=== PATIENT | male | born 1960 | race Caucasian/White ===

== ENCOUNTER → 2020-08-21 10:22 | Outpatient (BNVA) | payer BC, OTHER, SELFPAY | PROVIDERS: PCP Internal Medicine; Referring Provider Internal Medicine; Visit Provider Orthopaedic Surgery | DX: Z76.89 Persons encountering health services in other specified circumstances (principal) ==

== ENCOUNTER 2020-09-04 13:21 | Outpatient (REF) | payer BC, SELFPAY ==
--- NOTE | 2020-09-04 13:39 | MR_ITS ---
EXAMINATION: MR SHOULDER WITH CONTRAST, LEFT CLINICAL INFORMATION: Impingement syndrome left shoulder. COMPARISON: None TECHNIQUE: MRI of the shoulder was performed following the intra-articular administration of a dilute gadolinium-containing solution (arthrogram) on a high-field scanner. FINDINGS: Study assigned to sd for dictation on 09/09/2020. ROTATOR CUFF: Mild supraspinatus tendinosis. Question subtle thin interstitial tearing in the insertional anterior fibers, extending over a distance approximately 0.5 cm AP. No focal defect or tendon retraction otherwise seen. Infraspinatus, teres minor is intact. Subscapularis tendon is intact, with T2 signal changes within the tendon, could be related to the procedure versus mild tendinosis. No focal tear. No muscle atrophy or fatty infiltration. BICEPS: Intact CORACOACROMIAL ARCH: The undersurface of the acromion is flat with mild lateral downsloping and subacromial spur. Moderate AC joint arthritis. Trace edema/fluid in the subacromial subdeltoid space. LABRUM/CAPSULE: There is a increased T2 signal in the posteroinferior and the inferior labrum (approximately 9-5 o'clock). Findings are suspicious for a labral tear. There is a paralabral cyst measuring 1.5 x 0.4 x 0.4 cm extending inferior to the junction of the posterior/inferior labrum. T2 signal at the superior labral/cartilage interface, the appearance suggesting a sublabral sulcus rather than a tear. Inferior capsule is intact. GLENOHUMERAL JOINT/MARROW: Mild subcortical edema in the greater tuberosity. No fracture. MR/MR shoulder LT w con IMPRESSION: 1. Mild supraspinatus tendinosis. Question subtle interstitial tearing in the insertional anterior fibers measuring 0.5 cm AP. 2. Findings suspicious for a tear of the posteroinferior and inferior labrum. Subjacent 1.5 x 0.4 x 0.4 cm paralabral cyst. 3. Mild subcortical edema in the greater tuberosity. 4. Moderate AC joint arthritis. Possible mild subacromial subdeltoid bursitis. 5. Additional findings and details as above.
--- NOTE | 2020-09-04 13:41 | FL_ITS ---
EXAMINATION: XR ARTHROGRAM SHOULDER, LEFT CLINICAL INFORMATION: Impingement syndrome. Shoulder pain. Preop MRI. COMPARISON: Left shoulder x-ray April 2020 TECHNIQUE: Procedure and risks and benefits including bleeding and infection were discussed with the patient and informed consent was obtained. The left shoulder was prepped and draped in the usual sterile fashion. The skin and soft tissues were anesthetized with 1% lidocaine plain. Using fluoroscopic guidance and a 22-gauge spinal needle, access to the left shoulder joint was obtained. 1 to 2 mL of Omnipaque 300 contrast was injected fluoroscopically confirming adequate placement in the joint space. Subsequently, a mixture of dilute gadolinium and saline was injected into the joint space pre-MRI. FINDINGS: Single fluoroscopic image demonstrates needle placement in the joint space. FLUOROSCOPY TIME: 0.1 minute DOSE AREA PRODUCT: 0.5 vazquez per centimeter squared. 1 saved fluoroscopic image. FL/FL arthrogram shoulder LT IMPRESSION: Pre-MRI left shoulder arthrogram.
[2020-09-04] MEDS: iohexoL 300 MG/ML 50 ML INFUS..BTL IV (14:54)
== END 2020-09-04 13:22 | disposition home or self-care (01) ==
LOC: HO.XRAY 13:21
PROVIDERS: PCP Internal Medicine; Visit Provider Orthopaedic Surgery
DX: M75.42 Impingement syndrome of left shoulder (principal)
CPT/HCPCS: 23350; 73040; 73222; A9585; Q9967

== ENCOUNTER → 2020-09-10 10:01 | Outpatient (BNVA) | payer BC, OTHER, SELFPAY | PROVIDERS: PCP Internal Medicine; Referring Provider Internal Medicine; Visit Provider Orthopaedic Surgery | DX: Z76.89 Persons encountering health services in other specified circumstances (principal) ==

== ENCOUNTER 2020-09-26 09:07 | Day surgery (SDC) | payer BC, OTHER, SELFPAY ==
[2020-09-19 15:35] VITALS: BMI 28.0
--- NOTE | 2020-09-25 08:48 | P.CONAN_ITS ---
Documented by User: Angelia Ricks 09/25/20 08:52 HPI - Anesthesia Eval Consult details Narrative: Shoulder Arthroscopy with ASD [facility] Past Medical History Medical History Cervical radiculopathy Family History Family History Mother No problems noted. Father No problems noted. Surgical History Surgical History H/O colonoscopy Hx of arthroscopic knee surgery Hx of nasal septoplasty Social History Social History Smoking Status: Never smoker Use of substances other than those prescribed or required for medical reasons: No Advance Directives: No Advance Directives Information Provided: No Recently lost weight without trying: No Current occupational status: employed Current occupation: Right [employer] Meds Allergies Allergy/AdvReac Type Severity Reaction Status Date / Time No Known Allergies Allergy Verified 09/10/20 10:11 Home Medications Medication Instructions Recorded Confirmed Type No Known Home Meds 09/10/20 09/19/20 History Exam Exam Date and Time: September 25, 2020 0848 Height,Weight and Vital Signs: Height 5 ft 9 in Weight 86.183 kg Assessment and Plan Assessment Anesthesia Assessment: Chart Reviewed Documented by User: Casey Schroeder MD 09/26/20 10:04 [facility] Past Medical History Medical History Cervical radiculopathy Family History Family History Mother No problems noted. Father No problems noted. Surgical History Surgical History H/O colonoscopy Hx of arthroscopic knee surgery Hx of nasal septoplasty Social History Social History Smoking Status: Never smoker Use of substances other than those prescribed or required for medical reasons: No Advance Directives: No Advance Directives Information Provided: No Recently lost weight without trying: No Current occupational status: employed Current occupation: Right [employer]ed Meds Allergies Allergy/AdvReac Type Severity Reaction Status Date / Time No Known Allergies Allergy Verified 09/10/20 10:11 Home Medications Medication Instructions Recorded Confirmed Type No Known Home Meds 09/10/20 09/19/20 History Exam Airway Mallampati Class: II TM Dist: >3cm Neck ROM: Full Loose/Missing/Broken Teeth: No Heart: rrr Lungs: nl Other: ao Assessment and Plan Assessment Anesthesia Assessment: Anesthesia Plan Discussed and Chart Reviewed Final Anesthetic Review NPO: Yes ASA Class: II Final Preanesthetic Review: No Changes in Pt Med Stat, Meds/Allgs Chart Reviewed, Consent Obtained/Reviewed and Anes Risks/Benef Reviewed Patient Risk: Low Procedure Risk: Low Anesthetic Plan Anesthetic Plan: GA and Regional Block Disposition: Standard PACU
--- NOTE | 2020-09-26 09:04 | MHC.SHP ---
Pre-Procedural Eval Section A The patient is an INPATIENT: No Changes since office visit: No Cold of Flu in the past 2 weeks, No New Medical Problems, No Changes in Medication and No Patient answered all questions The History & Physical has been completed within 30 days and I have reviewed it.: Yes Section B Chief Complaint: Impingement Syndrome Left Shoulder Allergies: Allergies Allergy/AdvReac Type Severity Reaction Status Date / Time No Known Allergies Allergy Verified 09/10/20 10:11 Plan I have reviewed the history and physical and performed a pertinent physical examination on my patient. No changes have occurred unless specified.
[2020-09-26 09:20] VITALS: BP 159/109; PULSE 81; RESP 16; TEMP 36.2; O2SAT 97
[2020-09-26] MEDS: Lactated Ringers 1,000 ML 100 ML IVCONT (09:30)
--- NOTE | 2020-09-26 09:57 | PC.NURSE ---
patient day nerve block well. awaiting for procedure.
--- NOTE | 2020-09-26 12:05 | PM.PRCOR ---
Brief Operative Note Date of procedure: 09/26/20 Pre-op diagnosis: rotator cuff impingement left shoulder Post-op diagnosis: same (with superior labral tear) Procedure: LEFT SHOULDER WITH ASD Anesthesia: GETA and regional Surgeon: Digna Yu Estimated blood loss (mL): 2 Condition: stable Disposition: PACU
[2020-09-26 12:16] VITALS: BP 145/96; PULSE 80; RESP 16; TEMP 36.8; O2SAT 99
[2020-09-26 12:21] VITALS: BP 148/88; PULSE 75; RESP 16; O2SAT 97
[2020-09-26 12:26] VITALS: BP 149/91; PULSE 77; RESP 16; O2SAT 97
[2020-09-26 12:31] VITALS: PULSE 80; RESP 16; O2SAT 97
[2020-09-26 12:46] VITALS: BP 157/96; PULSE 76; RESP 20; TEMP 36.8; O2SAT 97
--- NOTE | 2020-09-29 11:21 | OP_ITS ---
SURGEON: Digna Yu MD PREOPERATIVE DIAGNOSIS: Rotator cuff impingement, left shoulder. POSTOPERATIVE DIAGNOSIS: PROCEDURE PERFORMED: Left shoulder glenohumeral arthroscopy with debridement with subacromial decompression, left shoulder. ESTIMATED BLOOD LOSS: COMPLICATIONS: ANESTHESIA: ASSISTANTS: SPECIMENS: POSTOPERATIVE DIAGNOSES: 1. Superior labral fraying, left shoulder. 2. Rotator cuff impingement, left shoulder. CLINICAL NOTE: This gentleman has an ongoing problem with pain and discomfort involving his left shoulder. He failed operative management. Subsequent investigations confirmed he had rotator cuff impingement without evidence of a tear. Therefore after explaining the risks, benefits, and alternatives and answering all his questions, it was mutually agreed upon to carry out the following procedure. DESCRIPTION OF PROCEDURE: Under a regional interscalene block and general anesthetic, the patient was placed in the right lateral decubitus position. The left shoulder had an EUA demonstrated full range of motion. No evidence of any instability. The left shoulder was then prepped and draped in standard fashion and placed in abduction of 35 degrees and 10 degrees of forward flexion with approximately pounds of traction. Surgical time-out was then performed. The patient was identified, procedure confirmed, site confirmed. Medical analogy and history were reviewed. Preoperative antibiotics were not given. Standard DVT prophylaxis. All other items were discussed and agreed upon. Standard posterior portal was established without any trauma. Anterior portal was established from inside-out technique. The joint was inspected. There was intact long head of the biceps out of the shoulder. The rotator cuff fully attached to the greater tuberosity as well as the portion on the lesser tuberosity normal inferior recess. There was a small area in the middle of the glenoid of grade 2 to 3 injury, but the rest of it was intact. There was fraying of the superior portion of the labrum. Using a full-radius resector, the labrum was debrided. At this point, the intra-articular portion was terminated and we turned our attention to the subacromial space. The scope and instruments were all withdrawn from the glenohumeral joint. The scope was re-introduced in the subacromial space from the posterior portal. Standard lateral portal was established. Using combination of the Ultra-Cut and ArthroCare, the soft tissue and bursa were removed from the subacromial space. The periosteum was removed from the undersurface of the acromion and the AC joint was identified. There was a type 3 acromion, especially anterolaterally. Using combination of the Ultra-Cut and the oval donell, the anterior osteophyte was completely removed. The acromion was thinned and flattened from medial to lateral and anterior to posterior. The distal end of the clavicle was beveled as well. At this point, there was abundant room for the rotator cuff. Using the ArthroCare, the areas were cauterized and the CA ligament was released. At this point, we terminated the procedure. Scope and instruments were all withdrawn. Stab incisions were closed with interrupted #3 nylon. Sterile dressing was then applied. Arm was taken out of traction, placed to the regular sling. The patient was transferred supine to the room bed reversed and transferred to the recovery room in good condition. Intraoperatively, there was minimal blood loss. No complications. MD LISSET Melgoza/CRISTIANE / [id number]
== END 2020-09-26 13:23 | disposition home or self-care (01) ==
PROVIDERS: PCP Internal Medicine; Visit Provider Orthopaedic Surgery
PROC: (CPT 29805; principal; 2020-09-26 10:30)
DX: M75.42 Impingement syndrome of left shoulder (principal); M75.82 Other shoulder lesions, left shoulder
CPT/HCPCS: 29822; 29826; J0171; J1100; J2250; J2405; J3010

== ENCOUNTER → 2020-10-08 10:12 | Outpatient (BNVA) | payer BC, OTHER, SELFPAY | PROVIDERS: PCP Internal Medicine; Visit Provider Orthopaedic Surgery | DX: Z76.89 Persons encountering health services in other specified circumstances (principal) ==

== ENCOUNTER → 2020-11-06 09:49 | Outpatient (BNVA) | payer BC, OTHER, SELFPAY | PROVIDERS: PCP Internal Medicine; Visit Provider Orthopaedic Surgery | DX: Z76.89 Persons encountering health services in other specified circumstances (principal) ==

== ENCOUNTER 2020-12-11 11:06 | Outpatient (REF) | payer BC, SELFPAY | END 2020-12-11 11:07 | disposition home or self-care (01) | LOC: HO.LAB 11:06 | PROVIDERS: Visit Provider Internal Medicine | DX: Z20.822 Contact with and (suspected) exposure to COVID-19 (principal) | CPT/HCPCS: 36415; C9803; U0003; U0005 ==

== ENCOUNTER 2020-12-16 06:48 | Outpatient (REF) | payer BC, SELFPAY ==
[2020-12-16 07:07] LABS: MANUAL DIFF FLAG NO
[2020-12-16 07:13] LABS: Basophils Absolute Auto 0.1 X10*3/uL (0.0-0.2); Basophils Percent Auto 1.2 % (0-2); Eosinophils Absolute Auto 0.2 X10*3/uL (0.0-0.4); Eosinophils Percent Auto 2.9 % (0-4); Hematocrit 46.8 % (42-52); Hemoglobin 15.6 g/dl (14.0-18.0); Imm Gran Abs Auto 0.01 X10*3/uL (0.00-0.03); Imm Gran Pct Auto 0.2 % (0.0-0.4); Lymphocytes Absolute Auto 1.5 X10*3/uL (1.2-4.9); Lymphocytes Percent Auto 29.4 % (20-40); Mean Corpuscular HGB Conc 33.3 g/dl (31.0-36.0); Mean Corpuscular Hemoglobin 30.7 pg (27.0-33.0); Mean Corpuscular Volume 92.1 fL (80-98); Mean Platelet Volume 10.5 fL (9.4-12.4); Monocytes Absolute Auto 0.7 X10*3/uL (0.1-1.2); Monocytes Percent Auto 13.5 % (2-11); Neutrophils Absolute Auto 2.7 X10*3/uL (2.0-8.3); Neutrophils Percent Auto 52.8 % (45-73); Platelet Count 159 X10*3/uL (160-400); Red Blood Count 5.08 X10*6/uL (4.60-5.80); Red Cell Distribution Width 13.1 % (11.0-16.0); White Blood Count 5.1 X10*3/uL (4.8-10.8)
[2020-12-16 07:34] LABS: Alanine Aminotransferase 25 U/L (0-40); Albumin Level 4.6 g/dL (3.5-5.0); Alkaline Phosphatase 68 U/L (39-117); Aspartate Amino Transferase 16 U/L (5-37); Bilirubin Total 0.6 mg/dL (0.0-1.0); Blood Urea Nitrogen 27 mg/dL (9-16); Calcium 9.1 mg/dL (8.4-10.2); Cholesterol 198 mg/dL; Estimated Glomerular Filt Rate > 60; Glucose Fasting 100 mg/dL (60-99); HDL Cholesterol 59 mg/dL; LDL Cholesterol Calculated 125 mg/dl; Total Protein 7.4 g/dL (6.5-8.0); Triglycerides 70 mg/dL
[2020-12-16 07:42] LABS: Anion Gap 11 (12-20); Carbon Dioxide 28 mmol/L (22-29); Chloride 108 mmol/L (96-108); Potassium 4.6 mmol/L (3.3-5.1); Sodium 142 mmol/L (135-145)
[2020-12-16 07:52] LABS: Thyroid Stimulating Hormone 1.68 uIU/mL (0.32-4.0)
== END 2020-12-16 06:49 | disposition home or self-care (01) ==
LOC: HO.LAB 06:48
PROVIDERS: PCP Internal Medicine; Visit Provider Internal Medicine
DX: Z00.00 Encounter for general adult medical examination without abnormal findings (principal); E11.9 Type 2 diabetes mellitus without complications; E03.9 Hypothyroidism, unspecified
CPT/HCPCS: 36415; 80053; 80061; 84443; 85025

== ENCOUNTER → 2020-12-18 08:39 | Outpatient (BNVA) | payer BC, SELFPAY | PROVIDERS: PCP Internal Medicine; Visit Provider Orthopaedic Surgery ==

== ENCOUNTER 2021-01-20 14:26 | Outpatient (REF) | payer BC, SELFPAY ==
[2021-01-20 16:16] LABS: COVID-19 Test Negative (Negative)
== END 2021-01-20 14:27 | disposition home or self-care (01) ==
LOC: HO.LAB 14:26
PROVIDERS: Visit Provider Internal Medicine
DX: Z20.822 Contact with and (suspected) exposure to COVID-19 (principal)
CPT/HCPCS: 36415; 87635; C9803

== ENCOUNTER 2021-01-23 10:06 | Outpatient (REF) | payer BC, SELFPAY ==
[2021-01-23 10:43] LABS: COVID-19 Test Negative (Negative)
== END 2021-01-23 10:07 | disposition home or self-care (01) ==
LOC: HO.LAB 10:06
PROVIDERS: Visit Provider Internal Medicine
DX: Z20.822 Contact with and (suspected) exposure to COVID-19 (principal)
CPT/HCPCS: 36415; 87635; C9803

== ENCOUNTER 2021-03-29 10:24 | Emergency (ER) | payer BC, SELFPAY ==
[2021-03-29 10:34] VITALS: BP 157/107; PULSE 86; RESP 18; TEMP 37.1; O2SAT 99; BMI 29.2
--- NOTE | 2021-03-29 10:46 | ED.GENADULT ---
HPI - General Adult General Chief complaint: General Medical Stated complaint: swollen throat, high blood pressure Time Seen by Provider: 03/29/21 10:37 History of Present Illness HPI narrative: Patient with 2 complaints sore throat and elevated blood pressure Sore throat has been going on for several days with some mild discomfort with eating food but he is able to eat and drink normally, he has no fever and chills Other complaint is he went to urgent care this morning with a checked his throat and he had a negative strep throat test, but they also checked his vital signs and a 1st reading showed a blood pressure of 200/140 When they repeated the reading it was 170 over 100, patient denies any associated symptoms he has no chest pain no weakness no fainting no vomiting no vision changes no headache He says he has recently seen his doctor and was told he is on the borderline of a hypertension diagnosis but takes no medication for hypertension Related Data Home Medications Medication Instructions Recorded Confirmed olopatadine 0.1 % eye drops drp OPHTHALMIC (EYE) 11/28/20 Previous Rx's Medication Instructions Recorded fluticasone propionate 50 2 spray INTRANASAL DAILY #15.8 ml 10/07/20 mcg/actuation nasal spray,suspension Allergies Allergy/AdvReac Type Severity Reaction Status Date / Time No Known Allergies Allergy Verified 12/18/20 08:48 Review of Systems Review of Systems: Positive for sore throat Negatives are no fever no chills no dizziness no weakness no fainting no feeling faint no headache no neck pain no chest pain no shortness of breath no abdominal pain no nausea vomiting or diarrhea no leg swelling no rash no numbness or weakness Yes all other systems are reviewed and are negative PMFSH Past Medical History Source: nursing notes reviewed Medical History Cervical radiculopathy Surgical History H/O colonoscopy Hx of arthroscopic knee surgery Hx of nasal septoplasty Family History Family History Mother No problems noted. Father No problems noted. Social History Social History Advance Directives: Yes Advance Directives Information Provided: Yes Advance Directives on File: No Current occupational status: employed Current occupation: Right Handed Physical Exam Vital Signs: Vital Signs: Last Vital Signs Temp 98.7 F 03/29/21 10:34 Pulse 86 03/29/21 10:34 Resp 18 03/29/21 10:34 BP 157/107 H 03/29/21 10:34 Pulse Ox 99 03/29/21 10:34 Body Mass Index 29.2 General appearance is no acute distress The pharynx shows some pharyngeal erythema, the uvula is midline the voice is normal there is no drooling there is redness but no exudate, there is no swelling of tonsils or uvula The neck is supple, no lymphadenopathy Chest is clear to auscultation no respiratory distress Extremities full range of motion x4 Skin no rash Neuro no focal deficit Course Course Course Narrative: Patient had negative strep test at clinic, pharynx shows only some erythema, no evidence of abscess, patient swallows easily The patient's blood pressure was elevated both here and in clinic here the reading was 157/107 The patient says he has been very stressed about the business situation and he attributes it to stress, I advised him it is very possible that he has developed hypertension but there is no hypertensive emergency and he should keep a log of readings for at least a week to get a sense of what his blood pressure usually is and he should follow closely with primary care Discharge Plan Discharge Clinical Impression: Pharyngitis, Elevated blood pressure reading Patient Disposition: Home, Self-Care Additional Instructions: Your strep test was negative in the clinic so no antibiotics now Your throat exam showed some redness but no sign of an abscess Your blood pressure reading here was elevated so I would advise keep a log of blood pressure readings at home at least twice a day and then follow closely with primary doctor and bring the record of blood pressure readings with you to decide whether you need to start treatment for hypertension Return any time any worse condition or any concerns Prescriptions: No Action fluticasone propionate 50 mcg/actuation spray,suspension 2 spray intranasal DAILY Qty: 15.8 RF: 8 olopatadine 0.1 % drops ophthalmic (eye) RF: 0
== END 2021-03-29 11:15 | disposition home or self-care (01) ==
PROVIDERS: Emergency Provider Emergency Medicine; PCP Internal Medicine
DX: J02.9 Acute pharyngitis, unspecified (principal); R03.0 Elevated blood-pressure reading, without diagnosis of hypertension
CPT/HCPCS: 99282; 99283

== ENCOUNTER 2021-04-02 07:10 | Outpatient (REF) | payer BC, SELFPAY ==
[2021-04-02 08:01] LABS: MANUAL DIFF FLAG NO
[2021-04-02 08:17] LABS: Basophils Percent Auto 0.2 % (0-2); Hematocrit 48.1 % (42-52); Hemoglobin 15.8 g/dl (14.0-18.0); Imm Gran Abs Auto 0.01 X10*3/uL (0.00-0.03); Imm Gran Pct Auto 0.2 % (0.0-0.4); Lymphocytes Absolute Auto 0.7 X10*3/uL (1.2-4.9); Lymphocytes Percent Auto 12.1 % (20-40); Mean Corpuscular HGB Conc 32.8 g/dl (31.0-36.0); Mean Corpuscular Hemoglobin 29.8 pg (27.0-33.0); Mean Corpuscular Volume 90.6 fL (80-98); Mean Platelet Volume 11.2 fL (9.4-12.4); Monocytes Absolute Auto 0.5 X10*3/uL (0.1-1.2); Monocytes Percent Auto 8.5 % (2-11); Neutrophils Absolute Auto 4.9 X10*3/uL (2.0-8.3); Platelet Count 221 X10*3/uL (160-400); Red Blood Count 5.31 X10*6/uL (4.60-5.80); Red Cell Distribution Width 12.6 % (11.0-16.0); White Blood Count 6.1 X10*3/uL (4.8-10.8)
[2021-04-02 08:57] LABS: Alanine Aminotransferase 11 U/L (0-40); Albumin Level 4.8 g/dL (3.5-5.0); Alkaline Phosphatase 88 U/L (39-117); Anion Gap 15 (12-20); Aspartate Amino Transferase 16 U/L (5-37); Bilirubin Total 0.6 mg/dL (0.0-1.0); Blood Urea Nitrogen 16 mg/dL (9-16); Calcium 9.8 mg/dL (8.4-10.2); Carbon Dioxide 24 mmol/L (22-29); Chloride 108 mmol/L (96-108); Estimated Glomerular Filt Rate > 60; Glucose Fasting 124 mg/dL (60-99); Potassium 4.9 mmol/L (3.3-5.1); Sodium 142 mmol/L (135-145)
== END 2021-04-02 07:11 | disposition home or self-care (01) ==
LOC: HO.LAB 07:10
PROVIDERS: PCP Internal Medicine; Visit Provider Internal Medicine
DX: E11.9 Type 2 diabetes mellitus without complications (principal); Z00.00 Encounter for general adult medical examination without abnormal findings
CPT/HCPCS: 36415; 80053; 85025

== ENCOUNTER 2021-08-13 07:48 | Outpatient (REF) | payer BC, SELFPAY ==
[2021-08-13 08:54] LABS: Anion Gap 11 (12-20); Blood Urea Nitrogen 26 mg/dL (9-16); Calcium 9.4 mg/dL (8.4-10.2); Carbon Dioxide 31 mmol/L (22-29); Chloride 105 mmol/L (96-108); Estimated Glomerular Filt Rate > 60; Potassium 4.5 mmol/L (3.3-5.1); Sodium 142 mmol/L (135-145)
[2021-08-13 09:17] LABS: TSH reflex Free T4 1.33 uIU/mL (0.32-4.0)
[2021-08-19 14:37] LABS: Renin 1.04 ng/mL/h (0.25-5.82)
[2021-08-25 11:01] LABS: Catecholamine Frac, Total 892 pg/mL
== END 2021-08-13 07:49 | disposition home or self-care (01) ==
LOC: HO.LAB 07:48
PROVIDERS: PCP Internal Medicine; Visit Provider Internal Medicine Nephrology
DX: I15.0 Renovascular hypertension (principal)
CPT/HCPCS: 36415; 80051; 82088; 82310; 82384; 82565; 84244; 84443; 84520

== ENCOUNTER 2021-10-23 08:38 | Outpatient (REF) | payer BC, SELFPAY ==
--- NOTE | ~2021-10-23 | XR_ITS ---
EXAMINATION: XR KNEE, RIGHT XR KNEE STANDING, BILATERAL CLINICAL INFORMATION: Pain COMPARISON: Left knee radiograph from 12/26/2009 (report only) TECHNIQUE: Standing bilateral knee views and 2 views of the right knee FINDINGS: No acute visible fracture or dislocation. Mild narrowing of the bilateral femoral acetabular joints, left greater than right. Mild narrowing of the lateral patellofemoral joint. Joint spaces and alignment are otherwise maintained. No large right-sided knee joint effusion. Soft tissues are unremarkable. XR/XR knee standing BI IMPRESSION: 1. No acute visible fracture or dislocation. 2. Mild multicompartment degenerative changes.
--- NOTE | ~2021-10-23 | XR_ITS ---
EXAMINATION: XR KNEE, RIGHT XR KNEE STANDING, BILATERAL CLINICAL INFORMATION: Pain COMPARISON: Left knee radiograph from 12/26/2009 (report only) TECHNIQUE: Standing bilateral knee views and 2 views of the right knee FINDINGS: No acute visible fracture or dislocation. Mild narrowing of the bilateral femoral acetabular joints, left greater than right. Mild narrowing of the lateral patellofemoral joint. Joint spaces and alignment are otherwise maintained. No large right-sided knee joint effusion. Soft tissues are unremarkable. XR/XR knee RT 2V IMPRESSION: 1. No acute visible fracture or dislocation. 2. Mild multicompartment degenerative changes.
== END 2021-10-23 08:39 | disposition home or self-care (01) ==
LOC: HO.HOSX 08:38
PROVIDERS: Visit Provider Orthopaedic Surgery
DX: M23.91 Unspecified internal derangement of right knee (principal)
CPT/HCPCS: 73560; 73565

== ENCOUNTER 2021-11-25 06:35 | Outpatient (REF) | payer BC, SELFPAY ==
[2021-11-25 06:44] LABS: MANUAL DIFF FLAG NO
[2021-11-25 07:30] LABS: Basophils Absolute Auto 0.1 X10*3/uL (0.0-0.2); Eosinophils Absolute Auto 0.4 X10*3/uL (0.0-0.4); Hematocrit 43.8 % (42.0-52.0); Hemoglobin 14.4 g/dl (14.0-18.0); Imm Gran Abs Auto 0.01 X10*3/uL (0.00-0.03); Imm Gran Pct Auto 0.2 % (0.0-0.4); Lymphocytes Absolute Auto 1.6 X10*3/uL (1.2-4.9); Lymphocytes Percent Auto 32.3 % (20-40); Mean Corpuscular HGB Conc 32.9 g/dl (31.0-36.0); Mean Corpuscular Hemoglobin 30.2 pg (27.0-33.0); Mean Corpuscular Volume 91.8 fL (80.0-98.0); Mean Platelet Volume 10.5 fL (9.4-12.4); Monocytes Absolute Auto 0.7 X10*3/uL (0.1-1.2); Monocytes Percent Auto 13.3 % (2-11); Neutrophils Absolute Auto 2.3 x10*3/uL (2.0-8.3); Neutrophils Percent Auto 46.2 % (45-73); Platelet Count 178 X10*3/uL (160-400); Red Blood Count 4.77 X10*6/uL (4.60-5.80); Red Cell Distribution Width 12.5 % (11.0-16.0)
[2021-11-25 08:09] LABS: Alanine Aminotransferase 13 U/L (0-40); Albumin Level 4.4 g/dL (3.5-5.0); Alkaline Phosphatase 61 U/L (39-117); Anion Gap 10 (12-20); Aspartate Amino Transferase 14 U/L (5-37); Bilirubin Total 0.7 mg/dL (0.0-1.0); Blood Urea Nitrogen 21 mg/dL (9-16); Calcium 9.5 mg/dL (8.4-10.2); Carbon Dioxide 32 mmol/L (22-29); Chloride 103 mmol/L (96-108); Cholesterol 195 mg/dL; Estimated Glomerular Filt Rate > 60; Glucose Fasting 92 mg/dL (60-99); HDL Cholesterol 49 mg/dL; LDL Cholesterol Calculated 129 mg/dl; Potassium 4.5 mmol/L (3.3-5.1); Sodium 140 mmol/L (135-145); Total Protein 7.3 g/dL (6.5-8.0); Triglycerides 87 mg/dL
== END 2021-11-25 06:36 | disposition home or self-care (01) ==
LOC: HO.LAB 06:35
PROVIDERS: PCP Internal Medicine; Visit Provider Internal Medicine
DX: Z00.00 Encounter for general adult medical examination without abnormal findings (principal); Z13.0 Encounter for screening for diseases of the blood and blood-forming organs and certain disorders involving the immune mechanism
CPT/HCPCS: 36415; 80053; 80061; 85025

== ENCOUNTER 2022-02-09 12:35 | Outpatient (REF) | payer BC, SELFPAY ==
[2022-02-09 12:57] LABS: COVID-19 Test Positive (Negative)
== END 2022-02-09 12:36 | disposition home or self-care (01) ==
LOC: HO.LAB 12:35
PROVIDERS: Visit Provider Internal Medicine
DX: Z20.822 Contact with and (suspected) exposure to COVID-19 (principal)
CPT/HCPCS: 87635; C9803

== ENCOUNTER → 2022-11-02 09:58 | Outpatient (BNVA) | payer BC, SELFPAY | PROVIDERS: PCP Internal Medicine; Visit Provider Orthopaedic Surgery | DX: Z13.89 Encounter for screening for other disorder (principal) ==

== ENCOUNTER 2022-11-17 07:55 | Outpatient (REF) | payer BC, SELFPAY ==
[2022-11-17 08:06] LABS: MANUAL DIFF FLAG NO
[2022-11-17 08:52] LABS: Basophils Percent Auto 0.5 % (0-2); Eosinophils Absolute Auto 0.2 X10*3/uL (0.0-0.4); Eosinophils Percent Auto 3.5 % (0-4); Hematocrit 44.3 % (42.0-52.0); Imm Gran Abs Auto 0.01 X10*3/uL (0.00-0.03); Imm Gran Pct Auto 0.2 % (0.0-0.4); Lymphocytes Absolute Auto 1.6 X10*3/uL (1.2-4.9); Lymphocytes Percent Auto 29.1 % (20-40); Mean Corpuscular HGB Conc 33.9 g/dl (31.0-36.0); Mean Corpuscular Hemoglobin 30.9 pg (27.0-33.0); Mean Corpuscular Volume 91.3 fL (80.0-98.0); Mean Platelet Volume 10.4 fL (9.4-12.4); Monocytes Absolute Auto 0.9 X10*3/uL (0.1-1.2); Monocytes Percent Auto 16.1 % (2-11); Neutrophils Absolute Auto 2.8 x10*3/uL (2.0-8.3); Neutrophils Percent Auto 50.6 % (45-73); Platelet Count 177 X10*3/uL (160-400); Red Blood Count 4.85 X10*6/uL (4.60-5.80); Red Cell Distribution Width 12.9 % (11.0-16.0); White Blood Count 5.5 X10*3/uL (4.8-10.8)
[2022-11-17 09:33] LABS: Alanine Aminotransferase 20 U/L (0-40); Albumin Level 4.5 g/dL (3.5-5.0); Alkaline Phosphatase 61 U/L (39-117); Anion Gap 13 (12-20); Aspartate Amino Transferase 18 U/L (5-37); Bilirubin Total 0.6 mg/dL (0.0-1.0); Blood Urea Nitrogen 21 mg/dL (9-16); Calcium 9.4 mg/dL (8.4-10.2); Carbon Dioxide 28 mmol/L (22-29); Chloride 105 mmol/L (96-108); Cholesterol 172 mg/dL; Estimated Glomerular Filt Rate > 60; Glucose Fasting 85 mg/dL (60-99); HDL Cholesterol 46 mg/dL; LDL Cholesterol Calculated 111 mg/dl; Potassium 4.4 mmol/L (3.3-5.1); Sodium 142 mmol/L (135-145); Triglycerides 79 mg/dL
[2022-11-17 09:48] LABS: Prostate Specific Antigen Scr 1.96 ng/mL (<0.05-4.0)
== END 2022-11-17 07:56 | disposition home or self-care (01) ==
LOC: HO.LAB 07:55
PROVIDERS: PCP Internal Medicine; Visit Provider Internal Medicine
DX: Z00.00 Encounter for general adult medical examination without abnormal findings (principal); E78.5 Hyperlipidemia, unspecified; N28.9 Disorder of kidney and ureter, unspecified; D64.9 Anemia, unspecified; Z12.5 Encounter for screening for malignant neoplasm of prostate
CPT/HCPCS: 36415; 80053; 80061; 84153; 85025

== ENCOUNTER → 2022-12-24 08:41 | Outpatient (BNVA) | payer BC, SELFPAY | PROVIDERS: PCP Internal Medicine; Visit Provider Orthopaedic Surgery | DX: Z13.89 Encounter for screening for other disorder (principal) ==

== ENCOUNTER 2023-07-12 13:17 | Outpatient (AMB) | payer BC, SELFPAY ==
[2023-07-12 13:18] VITALS: BP 138/78; PULSE 81; O2SAT 98; BMI 28.6
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
== END 2023-07-12 13:37 | disposition home or self-care (01) ==
PROVIDERS: PCP Internal Medicine; Visit Provider Internal Medicine
DX: Z23 Encounter for immunization (principal); I49.9 Cardiac arrhythmia, unspecified
CPT/HCPCS: 90471; 99213

== ENCOUNTER → 2023-07-13 09:12 | Outpatient (REF) | payer BC, SELFPAY ==
--- NOTE | 2023-07-13 09:26 | ECG_ITS ---
Test Reason : palpitations Blood Pressure : / mmHG Vent. Rate : 051 BPM Atrial Rate : 051 BPM P-R Int : 184 ms QRS Dur : 098 ms QT Int : 448 ms P-R-T Axes : 052 014 029 degrees QTc Int : 412 ms Sinus bradycardia Otherwise normal ECG No previous ECGs available Referred By: Bruce Covarrubias Electronically Signed By:DEONDRE MERCADO
== END ==
LOC: HO.CARD 09:12
PROVIDERS: PCP Internal Medicine; Visit Provider Internal Medicine
DX: R00.2 Palpitations (principal)
CPT/HCPCS: 93005

== ENCOUNTER 2023-10-15 06:27 | Day surgery (SDC) | payer BC, SELFPAY ==
--- NOTE | 2023-10-14 10:52 | HO.ANESPROP2 ---
Documented by User: Angelia Ricks NP 10/14/23 10:52 HPI - Anesthesia Eval Consult details Narrative: 63yo M for Colonoscopy PMFSH Active Problems Active Problems: All Active Problems (Updated 12/24/22 @ 09:08 by Drew Davalos) Osteoarthritis of right knee (Acute) Hypertension (Acute) Erectile dysfunction (Acute) Herpes gingivostomatitis (Acute) Internal derangement of right knee (Acute) Cold sore (Acute) Peritonsillar abscess determined by examination (Acute) Hypertension (Acute) Physical exam (Acute) S/P shoulder surgery (Acute) Rotator cuff impingement syndrome of left shoulder (Acute) Past Medical History Medical History HTN (hypertension) Erectile dysfunction Cervical radiculopathy Family History Family History Mother No problems noted. Father No problems noted. Surgical History Surgical History Hx of arthroscopic knee surgery Hx of nasal septoplasty H/O colonoscopy Social History Social History Housing: House Patient Tobacco Use Status: Never used Tobacco e-Cigarette/Vaping Use: Never Used Second Hand Smoke Exposure: No Use of substances other than those prescribed or required for medical reasons: No Are you DNR?: No Advance Directives: No Advance Directives Information Provided: Yes service: No Current occupational status: employed Cognitive needs: No Hearing needs: No Vision needs: No Meds Allergies Allergy/AdvReac Type Severity Reaction Status Date / Time No Known Allergies Allergy Verified 07/12/23 13:18 Home Medications Medication Instructions Recorded Confirmed Last Taken Type chlorthalidone 25 mg tablet 25 mg PO DAILY 11/21/21 07/12/23 Unknown History valsartan 160 mg tablet 160 mg PO DAILY 11/21/21 07/12/23 Unknown History Exam Narrative Narrative: EKG 07/2023 Vent. Rate : 051 BPM Atrial Rate : 051 BPM P-R Int : 184 ms QRS Dur : 098 ms QT Int : 448 ms P-R-T Axes : 052 014 029 degrees QTc Int : 412 ms Sinus bradycardia Otherwise normal ECG No previous ECGs available Assessment and Plan Assessment Anesthesia Assessment: Chart Reviewed Documented by User: Elida Hannah MD 10/15/23 07:53 PMFSH Active Problems Active Problems: All Active Problems (Updated @ 07:20 by Elida Hannah MD) Osteoarthritis of right knee (Acute) Hypertension (Acute) Erectile dysfunction (Acute) Herpes gingivostomatitis (Acute) Internal derangement of right knee (Acute) Cold sore (Acute) Peritonsillar abscess determined by examination (Acute) S/P shoulder surgery (Acute) Rotator cuff impingement syndrome of left shoulder (Acute) Past Medical History Medical History HTN (hypertension) Erectile dysfunction Cervical radiculopathy Family History Family History Mother No problems noted. Father No problems noted. Family history of problems with anesthesia: No Surgical History Surgical History Hx of arthroscopic knee surgery Hx of nasal septoplasty H/O colonoscopy History of Problems with Anesthesia: No Social History Social History Housing: House Patient Tobacco Use Status: Never used Tobacco e-Cigarette/Vaping Use: Never Used Second Hand Smoke Exposure: No Use of substances other than those prescribed or required for medical reasons: No Are you DNR?: No Advance Directives: No Advance Directives Information Provided: Yes service: No Current occupational status: employed Cognitive needs: No Hearing needs: No Vision needs: No Meds Allergies Allergy/AdvReac Type Severity Reaction Status Date / Time No Known Allergies Allergy Verified 07/12/23 13:18 Home Medications Medication Instructions Recorded Confirmed Last Taken Type chlorthalidone 25 mg tablet 25 mg PO DAILY 11/21/21 07/12/23 Unknown History valsartan 160 mg tablet 160 mg PO DAILY 11/21/21 07/12/23 Unknown History Exam Height,Weight and Vital Signs: Height 5 ft 9 in Weight 90.265 kg Vital Signs Temp Pulse Resp BP Pulse Ox O2 Del Method 10/15/23 06:56 97.5 F 64 16 154/100 H 98 Room Air Airway Mallampati Class: II TM Dist: >3cm Neck ROM: Full Loose/Missing/Broken Teeth: No Heart: RRR Lungs: CTAB Assessment and Plan Assessment Anesthesia Assessment: Anesthesia Plan Discussed Final Anesthetic Review Family History of Problems with Anesthesia: No History of Problems with Anesthesia: No NPO: Yes ASA Class: II Final Preanesthetic Review: No Changes in Pt Med Stat, Meds/Allgs Chart Reviewed, Consent Obtained/Reviewed and Anes Risks/Benef Reviewed Patient Risk: Low Procedure Risk: Low Assessment/Block/Sedation in SS: Assess/Block/Sedation-SS Anesthetic Plan Anesthetic Plan: TIVA Disposition: Standard PACU
[2023-10-15 06:39] VITALS: BMI 29.4
[2023-10-15 06:56] VITALS: BP 154/100; PULSE 64; RESP 16; TEMP 36.4; O2SAT 98
[2023-10-15 08:25] VITALS: BP 102/71; PULSE 64; RESP 16; TEMP 36.3; O2SAT 97
--- NOTE | 2023-10-15 08:28 | PM.OP ---
Brief Operative Note Date of Service: 10/15/23 Pre-op diagnosis: Screening Post-op diagnosis: other (Polyp) Procedure: Colonoscopy to the cecum and TI with bx/removal of polyp Surgeon: Heladio Francisco MD Anesthesia: MAC Was an Ground Crew Lines Person used for this Procedure?: No Estimated blood loss (mL): 2.0 Pathology: other (A. Polyp at 20cm) Condition: stable Disposition: PACU
[2023-10-15 08:42] VITALS: BP 143/93; PULSE 76; RESP 20; TEMP 36.1; O2SAT 98
--- NOTE | 2023-10-15 10:00 | OP_ITS ---
DATE OF SERVICE: 10/15/2023 SURGEON: Heladio Francisco MD INDICATIONS: The patient presents for evaluation of colorectal cancer screening. Full consent has been obtained from him for this, including risks of bleeding and perforation. PREOPERATIVE DIAGNOSIS: Colorectal cancer screening. POSTOPERATIVE DIAGNOSIS: PROCEDURE PERFORMED: Colonoscopy to the cecum and terminal ileum with biopsy and removal of polyp. ESTIMATED BLOOD LOSS: COMPLICATIONS: ANESTHESIA: Monitored anesthesia care. ASSISTANTS: SPECIMENS: POSTOPERATIVE DIAGNOSES: Colorectal cancer screening, small colon polyp, diverticulosis, and internal hemorrhoids. DESCRIPTION OF PROCEDURE: The patient was placed in left lateral decubitus position. The digital rectal exam revealed no abnormalities. The Olympus video pediatric colonoscope was entered into the rectum and advanced easily to the cecum. Once in the cecum, I did identify normal-appearing cecal pouch with appendiceal orifice and a normal-appearing ileocecal valve. The terminal ileum was cannulated and appeared normal. The scope withdrawn back in the colon. The entire cecum and ileocecal valve appeared normal. The scope was slowly withdrawn assessing all mucosal surfaces carefully. Preparation was excellent. At 20 cm was a flat, approximately 4 mm, probable hyperplastic polyp, which was biopsied and removed completely with the cold biopsy forceps. I did not visualize any other polyps, colitis, nor angiodysplasia. There was a mild amount of sigmoid diverticulosis. In the rectum, scope was retroflexed visualizing internal hemorrhoids, but no other pathology. The rectal mucosa appeared normal. The scope was straightened and withdrawn from the patient. He tolerated the procedure well and was returned to the recovery area in stable condition. IMPRESSION: 1. Small colon polyp. 2. Diverticulosis. 3. Internal hemorrhoids. PLAN: The results of the biopsies will be checked. If it is only hyperplastic, I would recommend a followup colonoscopy in 10 years. If it happens to be adenomatous, I would recommend a followup colonoscopy in 5 years. He will otherwise see me on a p.r.n. basis. This has been discussed with his . Heladio Francisco MD RMOzzy/CRISTIANE / [phone]
== END 2023-10-15 09:10 | disposition home or self-care (01) ==
PROVIDERS: PCP Internal Medicine; Visit Provider Internal Medicine
PROC: 0DJD8ZZ Inspection of Lower Intestinal Tract, Via Natural or Artificial Opening Endoscopic (ICD-10-PCS; CPT 45378; principal; 2023-10-15 07:30)
DX: Z12.11 Encounter for screening for malignant neoplasm of colon (principal); K63.5 Polyp of colon; K57.30 Diverticulosis of large intestine without perforation or abscess without bleeding; K64.8 Other hemorrhoids; I10 Essential (primary) hypertension; Z79.899 Other long term (current) drug therapy; Z87.891 Personal history of nicotine dependence; Z98.890 Other specified postprocedural states
CPT/HCPCS: 45380; 88305; J2704

== ENCOUNTER 2023-12-03 07:20 | Outpatient (REF) | payer BC, SELFPAY ==
[2023-12-03 07:46] LABS: MANUAL DIFF FLAG NO
[2023-12-03 08:03] LABS: Basophils Percent Auto 0.7 % (0-2); Eosinophils Absolute Auto 0.1 X10*3/uL (0.0-0.4); Hematocrit 46.2 % (42.0-52.0); Hemoglobin 15.5 g/dl (14.0-18.0); Imm Gran Abs Auto 0.01 X10*3/uL (0.00-0.03); Imm Gran Pct Auto 0.2 % (0.0-0.4); Lymphocytes Absolute Auto 1.4 X10*3/uL (1.2-4.9); Lymphocytes Percent Auto 25.5 % (20-40); Mean Corpuscular HGB Conc 33.5 g/dl (31.0-36.0); Mean Corpuscular Hemoglobin 30.5 pg (27.0-33.0); Mean Corpuscular Volume 90.8 fL (80.0-98.0); Mean Platelet Volume 10.3 fL (9.4-12.4); Monocytes Absolute Auto 0.7 X10*3/uL (0.1-1.2); Monocytes Percent Auto 13.3 % (2-11); Neutrophils Absolute Auto 3.2 x10*3/uL (2.0-8.3); Neutrophils Percent Auto 58.3 % (45-73); Platelet Count 159 X10*3/uL (160-400); Red Blood Count 5.09 X10*6/uL (4.60-5.80); White Blood Count 5.4 X10*3/uL (4.8-10.8)
[2023-12-03 08:47] LABS: Alanine Aminotransferase 33 U/L (0-40); Albumin Level 4.4 g/dL (3.5-5.0); Alkaline Phosphatase 61 U/L (39-117); Anion Gap 12 (12-20); Aspartate Amino Transferase 19 U/L (5-37); Bilirubin Total 0.7 mg/dL (0.0-1.0); Blood Urea Nitrogen 28 mg/dL (9-16); Carbon Dioxide 27 mmol/L (22-29); Chloride 107 mmol/L (96-108); Cholesterol 200 mg/dL (<200); Estimated Glomerular Filt Rate > 60; Glucose Fasting 95 mg/dL (60-99); HDL Cholesterol 50 mg/dL (>40); LDL Cholesterol Calculated 136 mg/dL (<100); Potassium 4.2 mmol/L (3.3-5.1); Sodium 142 mmol/L (135-145); Total Protein 7.4 g/dL (6.5-8.0); Triglycerides 72 mg/dL (<150)
== END 2023-12-03 07:21 | disposition home or self-care (01) ==
LOC: HO.LAB 07:20
PROVIDERS: PCP Internal Medicine; Visit Provider Internal Medicine
DX: D64.9 Anemia, unspecified (principal); E78.5 Hyperlipidemia, unspecified; N28.9 Disorder of kidney and ureter, unspecified
CPT/HCPCS: 36415; 80053; 80061; 85025

== ENCOUNTER 2023-12-07 08:48 | Outpatient (AMB) | payer BC, SELFPAY ==
[2023-12-07 08:49] VITALS: BP 120/84; PULSE 73; O2SAT 99; BMI 29.7
--- NOTE | 2023-12-07 08:49 | A.OFFPC_ITS ---
Vital Signs 12/07/23 08:49 Height 5 ft 9 in Weight 201 lb BMI 29.7 BP 120/84 Blood Pressure Location Lt brachial Position Sitting Pulse 73 Pulse Source Pulse Oximeter Pulse Oximetry (%) 99 Oxygen Delivery Method Room Air Intake Visit Reasons: PE Underground Distribution Engineer Required: No Jig Mill Operator: Not Required per policy Accompanied by: Self / Same As Patient Allergies No Known Allergies Allergy (Verified 12/07/23 08:50) Medication List - Last Reconciled 12/07/23 by Bruce Covarrubias MD chlorthalidone 25 mg PO DAILY metoprolol succinate ER 50 mg PO DAILY olopatadine 0.1% 1 drp ophthalmic (eye) BID triamcinolone acetonide 0.5% 1 appl topical TID valsartan 160 mg PO DAILY Tobacco use date assessed: 12/07/23 Dental Screening Dental Screen Date: 12/07/23 Did you have a dental visit in the last 12 months?: Yes Did you have a dental problem in the last 6 months where you did not have access to dental care?: No Was dental information given to patient?: Patient has dentist HPI PE HPI Details HTN stable PFSH Medical History HTN (hypertension) Erectile dysfunction Cervical radiculopathy Surgical History Hx of arthroscopic knee surgery Hx of nasal septoplasty H/O colonoscopy Family History Mother No problems noted. Father No problems noted. Social History Housing: House Patient Tobacco Use Status: Never used Tobacco e-Cigarette/Vaping Use: Never Used Second Hand Smoke Exposure: No service: No Current occupational status: employed Cognitive needs: No Hearing needs: No Vision needs: No Questionnaire PHQ-9 Over the last 2 weeks, how often have you been bothered by any of the following problems? 1. Little interest or pleasure in doing things: not at all 2. Feeling down, depressed, or hopeless: not at all 3. Trouble falling or staying asleep, or sleeping too much: not at all 4. Feeling tired or having little energy: not at all 5. Poor appetite or overeating: not at all 6. Feeling bad about yourself - or that you are a failure or have let yourself or your family down: not at all 7. Trouble concentrating on things, such as reading the newspaper or watching television: not at all 8. Moving or speaking so slowly that other people could have noticed. Or the opposite - being so fidgety or restless that you have been moving around a lot more than usual: not at all 9. Thoughts that you would be better off or of hurting yourself in some way: not at all Total score: 0 Depression Screening Interpretation: Negative Depression Screening Done: Yes 31654 - PHQ-9 Billing: Yes Source: Developed by Drs. Heladio Hseih, Gudelia Casas, Duane King and colleagues, with an educational oskar from [employer]. Thrive Questionnaire Date Thrive assessed: 12/07/23 I am a: Patient What is your living situation today?: I have a steady place to live Within the past 12 months, did the food you bought not last and you didn't have the money to get more?: Never true Within the past 12 months, did you worry whether your food would run out before you got money to buy more?: Never true Do you have trouble paying for medicines?: No Do you have trouble getting transportation to medical appointments?: No Do you have trouble paying your heating and electricity bill?: No Do you have trouble taking care of your child, family member or friend?: No Do you have trouble with day-to-day activities such as bathing, preparing meals, shopping, managing finances, etc.?: No Are you currently unemployed and looking for a job?: No Are you interested in more education?: No Please select the resources that you would like help with: None THRIVE Score: 0 AUDIT C Alcohol Use Questionnaire (AUDIT-C) 1. How often do you have a drink containing alcohol?: Never Total Score: 0 Score Reviewed/Action Taken: Yes RENETTA-7 AMB Questionnaire RENETTA-7 Date RENETTA - 7 assessed: 12/07/23 Feeling nervous, anxious, or on edge: 0 = Not at all Not being able to stop or control worryin = Not at all Worrying too much about different things: 0 = Not at all Trouble relaxin = Not at all Being so restless that it is hard to sit still: 0 = Not at all Becoming easily annoyed or irritable: 0 = Not at all Feeling afraid as if something awful might happen: 0 = Not at all Total RENETTA-7 score (0-4 normal; 5-9 mild; 10-14 moderate; 15-21 severe): 0 Source: Developed by Drs. Heladio Hsieh, Gudelia Casas, Duane King and colleagues, with an educational oskar from [employer]. RENETTA-7 Assessment Billing RENETTA-7 Assessment Tool: RENETTA-7 Assessment 75357 Review of Systems Const Denies chills, Denies fatigue, Denies headache(s) and Denies weight loss Eyes Denies change in vision, Denies diplopia and Denies eye pain ENT Denies vertigo, Denies dizziness, Denies headache(s) and Denies nasal discharge Card Denies chest pain, Denies rapid heart rate and Denies dyspnea on exertion Resp Denies chest congestion, Denies cough, Denies pain with cough and Denies dyspnea on exertion GI Denies abdominal pain, Denies hematochezia and Denies change in bowel habits Musc Denies myalgias, Denies arthralgias and Denies joint swelling Skin/Breast Denies lesions and Denies unusual bruising Neuro Denies vertigo, Denies dizziness, Denies headache(s) and Denies focal weakness Endo Denies fatigue Physical exam (Primary Care) Vital Signs: Last Vital Signs Pulse 73 12/07/23 08:49 BP 120/84 12/07/23 08:49 Pulse Ox 99 12/07/23 08:49 Oxygen Delivery Method Room Air 12/07/23 08:49 BMI result Body Mass Index 29.7 Tobacco/Smoking Status: Tobacco use Status Tobacco use date assessed 12/07/23 12/07/23 08:54 Patient Tobacco Use Status Never used Tobacco 12/07/23 08:54 e-Cigarette/Vaping Use Never Used 12/07/23 08:54 PHQ-9: PHQ-9 Score PHQ-9: Total score 0 12/07/23 08:54 Depression Screening Interpretation: Negative Thrive Assessment: Date of Thrive Assessment Date Thrive assessed 12/07/23 12/07/23 08:54 Const General: cooperative, healthy appearing and no acute distress Orientation/consciousness: oriented to person, oriented to place and oriented to time HENMT Head: Yes normal to inspection, Yes normocephalic and Yes atraumatic Mouth: Normal oral and palatal mucosa present and tongue normal Throat: Yes posterior oropharynx normal and Yes uvula midline Eyes General: appearance normal, both eyes and all related structures Neck Neck: Yes normal visual inspection, Yes full ROM and Yes no lymphadenopathy Thyroid: Thyroid normal Carotids: normal carotid upstroke Chest Chest palpation & inspection: normal inspection of the chest Resp Effort & Inspection: normal respiratory effort and able to speak in complete sentences Auscultation: clear to auscultation bilaterally Cardio Jugular venous distension: no JVD Palpation: normal PMI Rate: regular rate Rhythm: regular rhythm Heart sounds: S1 normal heart sound present and S2 normal heart sound present GI Inspection: Yes normal to inspection Palpation (GI): Soft to palpation and No hepatosplenomegaly present Auscultation: normal bowel sounds General: Yes no CVA tenderness Back/Spine/Pelvis Back: no CVA tenderness Skin General skin exam: no rashes or lesions noted Neuro General: oriented to person, oriented to place and oriented to time Extrem General: Yes normal to inspection and Yes full ROM Assessment and Plan Assessment & Plan (1) Physical exam: Code(s): Z00.00 - Encounter for general adult medical examination without abnormal findings Plan: stable (2) Hypertension: Code(s): I10 - Essential (primary) hypertension Plan: good control; same rx Coding Level of Care Code Est Pt Prev Care 40-64y(33720) Diagnoses Physical exam Z00.00 Hypertension I10 Additional Codes RENETTA-7 Assessment Billing - RENETTA-7 Assessment Tool: RENETTA-7 Assessment [id number] ([id number])
== END 2023-12-07 09:26 | disposition home or self-care (01) ==
PROVIDERS: Visit Provider Internal Medicine
DX: Z00.00 Encounter for general adult medical examination without abnormal findings (principal); I10 Essential (primary) hypertension
CPT/HCPCS: 99396

== ENCOUNTER 2023-12-28 10:58 | Outpatient (AMB) | payer BC, SELFPAY ==
--- NOTE | 2023-12-28 11:00 | MHC.PC.OV ---
Vital Signs 12/28/23 11:01 Height 5 ft 9 in Weight 195 lb BMI 28.8 BP 110/64 Blood Pressure Location Lt brachial Position Sitting Pulse 76 Pulse Source Pulse Oximeter Pulse Oximetry (%) 99 Oxygen Delivery Method Room Air Intake Visit Reasons: Nausea,abdominal pain, diarhea Chemical Detection Expert Required: No Paper Sales Manager: Not Required per policy Accompanied by: Self / Same As Patient Allergies No Known Allergies Allergy (Verified 12/28/23 11:01) Medication List - Last Reconciled 12/28/23 by Bruce Covarrubias MD chlorthalidone 25 mg PO DAILY metoprolol succinate ER 50 mg PO DAILY olopatadine 0.1% 1 drp ophthalmic (eye) BID triamcinolone acetonide 0.5% 1 appl topical TID valsartan 160 mg PO DAILY Tobacco use date assessed: 12/07/23 HPI Nausea,abdominal pain, diarhea HPI Details several weeks of abd pain and diarrhea and nausea PFSH Medical History HTN (hypertension) Erectile dysfunction Cervical radiculopathy Surgical History Hx of arthroscopic knee surgery Hx of nasal septoplasty H/O colonoscopy Family History Mother No problems noted. Father No problems noted. Social History Housing: House Patient Tobacco Use Status: Never used Tobacco e-Cigarette/Vaping Use: Never Used Second Hand Smoke Exposure: No service: No Current occupational status: employed Cognitive needs: No Hearing needs: No Vision needs: No Questionnaire Thrive Questionnaire Date Thrive assessed: 12/07/23 RENETTA-7 AMB Questionnaire RENETTA-7 Date RENETTA - 7 assessed: 12/07/23 Source: Developed by Drs. Heladio Hsieh, Gudelia Casas, Duane King and colleagues, with an educational oskar from [employer]. Review of Systems Const Denies chills, Denies headache(s) and Denies weight loss ENT Denies headache(s) Card Denies chest pain, Denies syncope, Denies irregular heart rhythm and Denies dyspnea Resp Denies chest congestion, Denies cough and Denies dyspnea GI Denies vomiting Musc Denies deformity and Denies joint swelling Neuro Denies syncope and Denies headache(s) Physical exam (Primary Care) Vital Signs: Last Vital Signs Pulse 76 12/28/23 11:01 BP 110/64 12/28/23 11:01 Pulse Ox 99 12/28/23 11:01 Oxygen Delivery Method Room Air 12/28/23 11:01 BMI result Body Mass Index 28.8 Tobacco/Smoking Status: Tobacco use Status Tobacco use date assessed 12/07/23 12/28/23 11:06 Patient Tobacco Use Status Never used Tobacco 12/28/23 11:06 e-Cigarette/Vaping Use Never Used 12/28/23 11:06 Thrive Assessment: Date of Thrive Assessment Date Thrive assessed 12/07/23 12/28/23 11:06 Const General: cooperative, comfortable, no acute distress and alert Neck Neck: Yes no lymphadenopathy Thyroid: Thyroid normal Resp Effort & Inspection: normal respiratory effort Auscultation: clear to auscultation bilaterally Percussion: percussion normal Cardio Jugular venous distension: no JVD Palpation: normal PMI Rate: regular rate Rhythm: regular rhythm Heart sounds: S1 normal heart sound present and S2 normal heart sound present GI Inspection: Yes normal to inspection Palpation (GI): No hepatosplenomegaly present Skin General skin exam: no rashes or lesions noted Extrem General: Yes no clubbing, cyanosis or edema Assessment and Plan Assessment & Plan (1) Abdominal pain: Code(s): R10.9 - Unspecified abdominal pain Plan: labs and US; rx Orders: Orders CDiff Gene PCR Today R19.7 - Diarrhea, unspecified US abdomen complete Today R10.9 - Unspecified abdominal pain Medications: New ondansetron HCl 4 mg PO Q6H PRN 30 tabs 2RF nausea and vomiting Coding Level of Care Code Est Pt Level 3 (03764) Diagnoses Abdominal pain R10.9
[2023-12-28 11:01] VITALS: BP 110/64; PULSE 76; O2SAT 99; BMI 28.8
== END 2023-12-28 11:19 | disposition home or self-care (01) ==
PROVIDERS: PCP Internal Medicine; Visit Provider Internal Medicine
DX: R10.9 Unspecified abdominal pain (principal)
CPT/HCPCS: 99213

== ENCOUNTER 2023-12-29 09:19 | Outpatient (REF) | payer BC, SELFPAY ==
--- NOTE | ~2023-12-29 | US_ITS ---
EXAMINATION: US ABDOMEN COMPLETE CLINICAL INFORMATION: Unspecified abdominal pain. COMPARISON: None available. TECHNIQUE: Real-time imaging of the abdominal viscera. FINDINGS: PANCREAS: Normal. ABDOMINAL AORTA: The proximal, mid, and distal segments are normal in caliber. INFERIOR VENA CAVA: Visualized portions are normal. LIVER: Liver is prominent and increased in echotexture compatible with steatosis. No focal hepatic mass. There is no intrahepatic biliary dilatation. GALLBLADDER: Small gallbladder polyp at 2 mm. No discrete stones. No gallbladder wall thickening or pericholecystic fluid. COMMON BILE DUCT: Normal in caliber measuring 0.32 cm in diameter. RIGHT KIDNEY: Normal. No hydronephrosis. No renal calculi or focal parenchymal lesions. The kidney measures 10.2 cm in maximum dimension. LEFT KIDNEY: Normal. No hydronephrosis. No renal calculi or focal parenchymal lesions. The kidney measures 12.7 cm in maximum dimension. SPLEEN: Normal. The spleen measures 10.7 cm in maximum dimension. FREE FLUID: None. US/US abdomen complete IMPRESSION: Echogenic liver likely reflect steatosis. Small gallbladder polyp. No biliary dilatation.
[2023-12-29 09:58] LABS: CDiff Gene PCR NEGATIVE (Negative)
== END 2023-12-29 09:20 | disposition home or self-care (01) ==
LOC: HO.HMGCX 09:19
PROVIDERS: PCP Internal Medicine; Visit Provider Internal Medicine
DX: R10.9 Unspecified abdominal pain (principal); R19.7 Diarrhea, unspecified
CPT/HCPCS: 76700; 87493

== ENCOUNTER 2024-01-25 12:10 | Outpatient (REF) | payer BC, SELFPAY ==
[2024-01-25 12:30] LABS: MANUAL DIFF FLAG NO
[2024-01-25 12:53] LABS: Basophils Percent Auto 0.7 % (0-2); Eosinophils Absolute Auto 0.2 X10*3/uL (0.0-0.4); Eosinophils Percent Auto 2.9 % (0-4); Hematocrit 43.3 % (42.0-52.0); Hemoglobin 14.8 g/dl (14.0-18.0); Imm Gran Abs Auto 0.01 X10*3/uL (0.00-0.03); Imm Gran Pct Auto 0.2 % (0.0-0.4); Lymphocytes Absolute Auto 1.3 X10*3/uL (1.2-4.9); Lymphocytes Percent Auto 21.5 % (20-40); Mean Corpuscular HGB Conc 34.2 g/dl (31.0-36.0); Mean Corpuscular Hemoglobin 30.4 pg (27.0-33.0); Mean Corpuscular Volume 88.9 fL (80.0-98.0); Mean Platelet Volume 10.6 fL (9.4-12.4); Monocytes Absolute Auto 0.8 X10*3/uL (0.1-1.2); Monocytes Percent Auto 13.6 % (2-11); Neutrophils Absolute Auto 3.6 x10*3/uL (2.0-8.3); Neutrophils Percent Auto 61.1 % (45-73); Platelet Count 186 X10*3/uL (160-400); Red Blood Count 4.87 X10*6/uL (4.60-5.80); White Blood Count 5.9 X10*3/uL (4.8-10.8)
[2024-01-25 13:45] LABS: Erythrocyte Sedimentation Rate 5 MM/HR (0-15)
[2024-01-25 17:22] LABS: Alanine Aminotransferase 29 U/L (0-40); Albumin Level 4.6 g/dL (3.5-5.0); Alkaline Phosphatase 63 U/L (39-117); Aspartate Amino Transferase 23 U/L (5-37); Bilirubin Direct 0.2 mg/dL (0.0-0.5); Bilirubin Total 0.7 mg/dL (0.0-1.0); C Reactive Protein 0.18 mg/dL (< or = 0.50); Total Protein 7.6 g/dL (6.5-8.0)
[2024-01-26 16:20] LABS: Immunoglobulin A 230 mg/dL (70-320)
[2024-01-27 21:08] LABS: Gliadin Deamidated IgG Ab <1.0 U/mL; Transglutaminase Ab IgG 11.6 U/mL; Transglutaminase IgA <1.0 U/mL
[2024-01-27 23:44] LABS: Endomysial IgA Antibody Negative (Negative)
== END 2024-01-25 12:11 | disposition home or self-care (01) ==
LOC: HO.LAB 12:10
PROVIDERS: Visit Provider Internal Medicine
DX: R19.4 Change in bowel habit (principal); R19.7 Diarrhea, unspecified
CPT/HCPCS: 36415; 80076; 82784; 84443; 85025; 85652; 86140; 86231; 86258; 86364

== ENCOUNTER 2024-01-26 08:41 | Outpatient (REF) | payer BC, SELFPAY ==
[2024-01-26 10:17] LABS: CDiff Gene PCR NEGATIVE (Negative)
[2024-01-26 11:07] LABS: Leukocytes Stool Qualitative NEGATIVE (NEGATIVE)
[2024-01-26 12:32] LABS: Adenovirus F 40/41 Not Detected (Not Detect.); Astrovirus Not Detected (Not Detect.); Campylobacter Not Detected (Not Detect.); Cryptosporidium Not Detected (Not Detect.); Cyclospora cayetanensis Not Detected (Not Detect.); E. coli EAEC Not Detected (Not Detect.); E. coli EPEC Not Detected (Not Detect.); E. coli ETEC Not Detected (Not Detect.); E. coli STEC Not Detected (Not Detect.); Entamoeba histolytica Not Detected (Not Detect.); Giardia lamblia Not Detected (Not Detect.); Norovirus GI/GII Not Detected (Not Detect.); Plesiomonas shigelloides Not Detected (Not Detect.); Rotavirus A Not Detected (Not Detect.); Salmonella Not Detected (Not Detect.); Sapovirus Not Detected (Not Detect.); Shigella sp./EIEC Not Detected (Not Detect.); Vibrio Not Detected (Not Detect.); Vibrio Cholerae Not Detected (Not Detect.); Yersinia enterocolitica Not Detected (Not Detect.)
[2024-02-01 15:43] LABS: Calprotectin, Fecal 53 mcg/g
== END 2024-01-26 08:42 | disposition home or self-care (01) ==
LOC: HO.LNP 08:41
PROVIDERS: Visit Provider Internal Medicine
DX: R19.7 Diarrhea, unspecified (principal); R19.4 Change in bowel habit
CPT/HCPCS: 83993; 87177; 87209; 87329; 87493; 87507; 89055

== ENCOUNTER 2024-04-18 10:03 | Emergency (ER) | payer BC, SELFPAY ==
--- NOTE | ~2024-04-18 | XR_ITS ---
EXAMINATION: XR SHOULDER, RIGHT CLINICAL INFORMATION: Fall and pain, unable to move right arm. COMPARISON: None available. TECHNIQUE: AP external rotation, Grashey, scapular Y, and axillary views of the right shoulder. FINDINGS: Humeral head is inferiorly located relative to the glenoid. Distal clavicle slightly superiorly oriented relative to the acromium. No definite fracture or dislocation. Visualized ribs and lung are unremarkable. XR/XR shoulder RT min 2V IMPRESSION: Question right shoulder effusion and/or hematoma. No definite fracture or dislocation.
[2024-04-18 10:39] VITALS: BP 112/73; PULSE 70; RESP 16; TEMP 37; O2SAT 99; BMI 28.4
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
[2024-04-18] MEDS: Morphine Sulfate Immed Release 15 MG TABLET PO (13:36)
[2024-04-18 14:06] VITALS: BP 112/73; PULSE 70; RESP 16; TEMP 37; O2SAT 99
== END 2024-04-18 14:06 | disposition home or self-care (01) ==
PROVIDERS: Emergency Provider Emergency Medicine; PCP Internal Medicine
DX: S40.011A Contusion of right shoulder, initial encounter (principal); V19.3XXA Pedal cyclist (driver) (passenger) injured in unspecified nontraffic accident, initial encounter; Y93.55 Activity, bike riding; Y92.9 Unspecified place or not applicable; Y99.9 Unspecified external cause status
CPT/HCPCS: 73030; 99283; 99284

== ENCOUNTER 2024-04-24 08:35 | Outpatient (AMB) | payer BC, SELFPAY ==
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
== END 2024-04-24 09:17 | disposition home or self-care (01) ==
PROVIDERS: PCP Internal Medicine
DX: S43.122A Dislocation of left acromioclavicular joint, 100%-200% displacement, initial encounter (principal)
CPT/HCPCS: 99213

== ENCOUNTER → 2024-04-24 08:35 | Outpatient (BNVA) | payer BC, SELFPAY | PROVIDERS: PCP Internal Medicine ==

== ENCOUNTER 2024-05-05 08:21 | Outpatient (REF) | payer BC, SELFPAY ==
--- NOTE | ~2024-05-05 | XR_ITS ---
EXAMINATION: XR SHOULDER, RIGHT CLINICAL INFORMATION: Right shoulder pain. COMPARISON: Right shoulder radiographs dated 04/18/2024 and 03/29/2018. TECHNIQUE: AP, Grashey, and scapular Y views of the right shoulder. FINDINGS: Widening of the acromioclavicular joint with elevation of the distal clavicle, unchanged when compared to the radiographs dated 04/18/2024 and new when compared to the radiographs dated 03/29/2018. Findings are consistent with an acute/subacute acromioclavicular joint injury. Correlate for focal tenderness. No fracture. No joint space narrowing or marginal osteophytes. No osseous erosion. No abnormal soft tissue calcification. XR/XR shoulder RT min 2V IMPRESSION: Widening of the acromioclavicular joint with elevation of the distal clavicle, unchanged when compared to the radiographs dated 04/18/2024 and new when compared to the radiographs dated 03/29/2018. Findings are consistent with an acute/subacute acromioclavicular joint injury. Correlate for focal tenderness.
== END 2024-05-05 08:22 | disposition home or self-care (01) ==
LOC: HO.HOSX 08:21
DX: M25.511 Pain in right shoulder (principal)
CPT/HCPCS: 73030

== ENCOUNTER 2024-05-05 08:22 | Outpatient (AMB) | payer BC, SELFPAY ==
--- NOTE | 2024-05-05 08:36 | A.OFFVIS_ITS ---
Vital Signs 05/05/24 08:37 Handedness Right Intake Visit Reasons: OV-right shoulder injury-w/xray Intake Note: Daniel is a 64 year old right hand dominant male who presents today for a follow up visit for his right shoulder acromioclavicular joint separation s/p DOI: 04/18/24. Patient reports he has little improvement since his last visit. He has been avoiding over the head and heavy lifting and has not been using his sling. He does not feel ready to return to work. States he does not feel his recovery is going as fast as he thought he would. He brought in short term disability forms to be completed. He takes Tylenol PM due to not being able to sleep at night and Tylenol and ice throughout the day which is giving him mild relief. Allergies No Known Allergies Allergy (Verified 05/05/24 08:42) HPI HPI OV-right shoulder injury-w/xray: Details: Patient is a 64-year-old male presents to the office for 2 week follow-up of right AC joint separation, date of injury 04/18/2024. Today, the patient reports that he has been slowly improving in terms of his pain and range of motion, but still experiences significant limitations on a daily basis. Patient reports that he finds himself having to wear a tank tops because in his difficult to put on a shirt with sleeves due to his limited range of motion. Patient reports that he attempted driving to work after removing himself from the sling, but found that his limitations and discomfort made this incredibly difficult. Patient inquires about what the further treatment options are at this time. [facility] Medical History HTN (hypertension) Erectile dysfunction Cervical radiculopathy Surgical History Hx of arthroscopic knee surgery Hx of nasal septoplasty H/O colonoscopy Family History Mother No problems noted. Father No problems noted. Social History Housing: House Patient Tobacco Use Status: Never used Tobacco e-Cigarette/Vaping Use: Never Used Second Hand Smoke Exposure: No service: No Current occupational status: employed Cognitive needs: No Hearing needs: No Vision needs: No Physical Exam Extrem Other: On inspection, there is a visible and palpable deformity at the level of the AC joint of the right shoulder Patient reports very mild tenderness to palpation this area No erythema, ecchymosis, evidence of infection No lacerations, abrasions, open areas noted Patient is able to flex the shoulder to 90 degrees with difficulty due to pain Patient is able to externally rotate the shoulder to approximately 45-50 degrees with pain Distal sensation intact Capillary refill brisk Results Reviewed Results Reviewed: X-rays taken in the office today and independently reviewed by me, Cliff Villasenor PA-C, demonstrate grade 2 AC joint separation, minimal change from previous x- rays. Assessment & Plan Assessment & Plan (1) Acromioclavicular joint separation: Code(s): S43.109A - Unspecified dislocation of unspecified acromioclavicular joint, initial encounter Category: Medical Qualifiers: Encounter type: initial encounter Laterality: right Qualified Code(s): S43.101A - Unspecified dislocation of right acromioclavicular joint, initial encounter Plan 1. Right AC joint separation Date of injury 04/18/2024 Patient is recovering well from this injury Patient is educated about the typical recovery course Patient is informed that the mainstay of treatment for AC joint separation is physical therapy for improvement of range of motion and strengthening Patient is amenable to this plan Referral placed for PT today Patient also inquires about getting a one-week extension on his work note, as he does not feel he is able to adequately fulfill his job duties with his limited range of motion and extreme discomfort with driving Patient is given a one-week extension on his work note Patient also drops off short-term disability paperwork to be filled out, and is informed that this can take up to 7 business days but will be retroactive Patient is amenable to this plan Patient will follow-up in 4 weeks for reassessment and [id number] check, sooner with any acute concern Orders: Orders XR shoulder RT min 2V Today M25.511 - Pain in right shoulder PT Evaluation and Treatment Today S43.101A - Unspecified dislocation of right acromioclavicular joint, initial encounter Coding Level of Care Code New Pt Level 3 (81069) Diagnoses Separation of right acromioclavicular joint, initial encounter S43.101A Encounter type: initial encounter Laterality: right
== END 2024-05-05 09:05 | disposition home or self-care (01) ==
PROVIDERS: PCP Internal Medicine
DX: S43.101A Unspecified dislocation of right acromioclavicular joint, initial encounter (principal)
CPT/HCPCS: 99213

== ENCOUNTER 2024-06-02 08:11 | Outpatient (AMB) | payer BC, SELFPAY ==
[2024-06-02 08:12] VITALS: BMI 28.4
--- NOTE | 2024-06-02 08:12 | A.OFFVIS_ITS ---
Vital Signs 06/02/24 08:12 Height 5 ft 9 in Weight 192 lb BMI 28.4 Intake Visit Reasons: OV-right shoulder injury-follow up Intake Note: Daniel is a 64 year old right hand dominant male who presents today for a ROM check s/p right shoulder acromioclavicular joint separation s/p DOI: 04/18/24. Patient has returned to go and is also going PT which he finds helpful. Patient states he feels better but expected a quicker recovery. Allergies No Known Allergies Allergy (Verified 06/02/24 08:17) HPI HPI OV-right shoulder injury-follow up: Details: Patient is a 64-year-old male who presents for follow-up evaluation of right AC joint separation, date of injury 04/18/2024. Patient reports that he is feeling much better since date of injury, and then at baseline he is not experiencing pain or discomfort. Patient reports that he has been able to return to most of his normal activities, such as working, driving, and bicycling. However, the patient does report that he still experiences some discomfort with overhead activities, and then he does not feel his right shoulder is as strong as the left. The patient reports that this has improved significantly since beginning physical therapy, but he was expecting to fully recover at a quicker pace. Patient denies any numbness or tingling in the right upper extremity. No other acute complaints or concerns at this time. [facility] Medical History HTN (hypertension) Erectile dysfunction Cervical radiculopathy Surgical History Hx of arthroscopic knee surgery Hx of nasal septoplasty H/O colonoscopy Family History Mother No problems noted. Father No problems noted. Social History (Updated 06/02/24 @ 08:13 by GROGE Heller) Housing: House Patient Tobacco Use Status: Never used Tobacco e-Cigarette/Vaping Use: Never Used Second Hand Smoke Exposure: No service: No Current occupational status: employed Current occupation: rt handed Cognitive needs: No Hearing needs: No Vision needs: No Physical Exam Vital Signs: BMI result Body Mass Index 28.4 Extrem Other: On inspection, there is a visible and palpable deformity at the level of the AC joint of the right shoulder Patient reports no tenderness to palpation this area No erythema, ecchymosis, evidence of infection No lacerations, abrasions, open areas noted Patient is able to flex the shoulder to 120 degrees without difficulty bilaterally Patient is able to externally rotate the shoulder to approximately 60-70 degrees bilaterally without difficulty. Distal sensation intact Capillary refill brisk Assessment & Plan Assessment & Plan (1) Acromioclavicular joint separation: Code(s): S43.109A - Unspecified dislocation of unspecified acromioclavicular joint, initial encounter Category: Medical Qualifiers: Encounter type: initial encounter Laterality: right Qualified Code(s): S43.101A - Unspecified dislocation of right acromioclavicular joint, initial encounter Plan 1. Right AC joint separation Date of injury 04/18/2024 Patient appears to be recovering well from this injury Patient is educated about the typical recovery course The patient is informed that AC joint separations can have a prolonged recovery in terms of return to full function, and some people never get 100% full strength back in her right shoulder Patient is informed that it is important that he continues working with physical therapy in order to regain as much strength as possible in his right shoulder Patient is informed that he can begin a gradual return to normal activity as tolerated, but to continue with necessary activity modifications if he experiences any discomfort. Patient is amenable to this plan Patient will follow-up as needed with any acute concerns. Coding Level of Care Code Est Pt Level 3 (80859) Diagnoses Separation of right acromioclavicular joint, initial encounter S43.101A Encounter type: initial encounter Laterality: right
== END 2024-06-02 08:36 | disposition home or self-care (01) ==
PROVIDERS: PCP Internal Medicine
DX: S43.101A Unspecified dislocation of right acromioclavicular joint, initial encounter (principal)
CPT/HCPCS: 99213

== ENCOUNTER → 2024-06-02 08:11 | Outpatient (BNVA) | payer BC, SELFPAY | PROVIDERS: PCP Internal Medicine ==

== ENCOUNTER 2024-11-28 07:28 | Outpatient (REF) | payer BC, SELFPAY ==
[2024-11-28 07:46] LABS: MANUAL DIFF FLAG NO
[2024-11-28 08:13] LABS: Basophils Absolute Auto 0.1 X10*3/uL (0.0-0.2); Basophils Percent Auto 0.9 % (0-2); Eosinophils Absolute Auto 0.2 X10*3/uL (0.0-0.4); Eosinophils Percent Auto 2.3 % (0-4); Hematocrit 47.8 % (42.0-52.0); Hemoglobin 15.9 g/dl (14.0-18.0); Imm Gran Abs Auto 0.03 X10*3/uL (0.00-0.03); Imm Gran Pct Auto 0.5 % (0.0-0.4); Lymphocytes Absolute Auto 1.6 X10*3/uL (1.2-4.9); Lymphocytes Percent Auto 24.4 % (20-40); Mean Corpuscular HGB Conc 33.3 g/dl (31.0-36.0); Mean Corpuscular Hemoglobin 29.7 pg (27.0-33.0); Mean Corpuscular Volume 89.3 fL (80.0-98.0); Monocytes Percent Auto 15.1 % (2-11); Neutrophils Absolute Auto 3.7 x10*3/uL (2.0-8.3); Neutrophils Percent Auto 56.8 % (45-73); Platelet Count 196 X10*3/uL (160-400); Red Blood Count 5.35 X10*6/uL (4.60-5.80); Red Cell Distribution Width 13.1 % (11.0-16.0); White Blood Count 6.5 X10*3/uL (4.8-10.8)
[2024-11-28 09:08] LABS: Alanine Aminotransferase 31 U/L (0-40); Albumin Level 4.4 g/dL (3.5-5.0); Alkaline Phosphatase 64 U/L (39-117); Anion Gap 13 (12-20); Aspartate Amino Transferase 23 U/L (5-37); Bilirubin Total 0.6 mg/dL (0.0-1.0); Blood Urea Nitrogen 25 mg/dL (9-16); Calcium 9.6 mg/dL (8.4-10.2); Carbon Dioxide 28 mmol/L (22-29); Chloride 106 mmol/L (96-108); Cholesterol 188 mg/dL (<200); Estimated Glomerular Filt Rate > 60; Glucose Fasting 100 mg/dL (60-99); HDL Cholesterol 47 mg/dL (>40); LDL Cholesterol Calculated 126 mg/dL (<100); Potassium 5.1 mmol/L (3.3-5.1); Sodium 142 mmol/L (135-145); Total Protein 7.8 g/dL (6.5-8.0); Triglycerides 77 mg/dL (<150)
[2024-11-28 09:52] LABS: Thyroid Stimulating Hormone 2.44 uIU/mL (0.32-4.0)
== END 2024-11-28 07:29 | disposition home or self-care (01) ==
LOC: HO.LAB 07:28
PROVIDERS: PCP Internal Medicine; Visit Provider Internal Medicine
DX: Z13.0 Encounter for screening for diseases of the blood and blood-forming organs and certain disorders involving the immune mechanism (principal); Z13.9 Encounter for screening, unspecified; Z13.220 Encounter for screening for lipoid disorders; Z13.29 Encounter for screening for other suspected endocrine disorder
CPT/HCPCS: 36415; 80053; 80061; 84443; 85025

== ENCOUNTER 2024-12-07 08:54 | Outpatient (AMB) | payer BC, SELFPAY ==
--- NOTE | 2024-12-07 08:59 | A.OFFPC_ITS ---
Vital Signs 12/07/24 09:00 Height 5 ft 9 in Weight 195 lb BMI 28.8 BP 110/68 Blood Pressure Location Lt brachial Position Sitting Pulse 69 Pulse Source Pulse Oximeter Temp 96.9 F Temp Source Temporal Artery Scan Pulse Oximetry (%) 98 Oxygen Delivery Method Room Air Intake Visit Reasons: pe Intake Note: Patient is here today for a physical. 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 Accompanied by: Self / Same As Patient Allergies No Known Allergies Allergy (Verified 12/07/24 08:59) Medication List - Last Reconciled 12/07/24 by Bruce Covarrubias MD chlorthalidone 25 mg PO DAILY ibuprofen 600 mg PO Q6H PRN metoprolol succinate ER 50 mg PO DAILY olopatadine 0.1% 1 drp ophthalmic (eye) BID ondansetron HCl 4 mg PO Q6H PRN triamcinolone acetonide 0.5% 1 appl topical TID valsartan 160 mg PO DAILY Tobacco use date assessed: 12/07/24 Dental Screening Dental Screen Date: 12/07/24 Did you have a dental visit in the last 12 months?: Yes Did you have a dental problem in the last 6 months where you did not have access to dental care?: No Was dental information given to patient?: Patient has dentist HPI pe HPI Details HTN on Rx; feels well PFSH Medical History HTN (hypertension) Erectile dysfunction Cervical radiculopathy Surgical History Hx of arthroscopic knee surgery Hx of nasal septoplasty H/O colonoscopy Family History Mother No problems noted. Father No problems noted. Social History Housing: House Patient Tobacco Use Status: Never used Tobacco e-Cigarette/Vaping Use: Never Used Second Hand Smoke Exposure: No service: No Current occupational status: employed Current occupation: rt handed Cognitive needs: No Hearing needs: No Vision needs: No Questionnaire PHQ-9 Over the last 2 weeks, how often have you been bothered by any of the following problems? 1. Little interest or pleasure in doing things: not at all 2. Feeling down, depressed, or hopeless: not at all 3. Trouble falling or staying asleep, or sleeping too much: not at all 4. Feeling tired or having little energy: not at all 5. Poor appetite or overeating: not at all 6. Feeling bad about yourself - or that you are a failure or have let yourself or your family down: not at all 7. Trouble concentrating on things, such as reading the newspaper or watching television: not at all 8. Moving or speaking so slowly that other people could have noticed. Or the opposite - being so fidgety or restless that you have been moving around a lot more than usual: not at all 9. Thoughts that you would be better off or of hurting yourself in some way: not at all Total score: 0 Depression Screening Interpretation: Negative Depression Screening Done: Yes Source: Developed by Drs. Heladio Hsieh, Gudelia Casas, Duane King and colleagues, with an educational oskar from [employer]. Thrive Questionnaire Date Thrive assessed: 11/30/24 I am a: Patient What is your living situation today?: I have a steady place to live Within the past 12 months, did the food you bought not last and you didn't have the money to get more?: Never true Within the past 12 months, did you worry whether your food would run out before you got money to buy more?: Never true Do you have trouble paying for medicines?: No Do you have trouble getting transportation to medical appointments?: No Do you have trouble paying your heating and electricity bill?: No Do you have trouble taking care of your child, family member or friend?: No Do you have trouble with day-to-day activities such as bathing, preparing meals, shopping, managing finances, etc.?: No Are you currently unemployed and looking for a job?: No Are you interested in more education?: No Please select the resources that you would like help with: None Currently or been in a relationship where the following occur: No concerns reported THRIVE Score: 0 AUDIT C Alcohol Use Questionnaire (AUDIT-C) 1. How often do you have a drink containing alcohol?: 2-4 times a month 2. How many drinks containing alcohol do you have on a typical day when you are drinking?: 1 or 2 3. How often do you have six or more drinks on one occasion?: Never Total Score: 2 RENETTA-7 AMB Questionnaire RENETTA-7 Date RENETTA - 7 assessed: 12/07/24 Feeling nervous, anxious, or on edge: 0 = Not at all Not being able to stop or control worryin = Not at all Worrying too much about different things: 0 = Not at all Trouble relaxin = Not at all Being so restless that it is hard to sit still: 0 = Not at all Becoming easily annoyed or irritable: 0 = Not at all Feeling afraid as if something awful might happen: 0 = Not at all Total RENETTA-7 score (0-4 normal; 5-9 mild; 10-14 moderate; 15-21 severe): 0 Source: Developed by Drs. Heladio Hsieh, Gudelia Casas, Duane King and colleagues, with an educational oskar from [employer]. Review of Systems Const Denies chills, Denies fatigue, Denies headache(s) and Denies weight loss Eyes Denies change in vision, Denies diplopia and Denies eye pain ENT Denies vertigo, Denies dizziness, Denies headache(s) and Denies nasal discharge Card Denies chest pain, Denies rapid heart rate and Denies dyspnea on exertion Resp Denies chest congestion, Denies cough, Denies pain with cough and Denies dyspnea on exertion GI Denies abdominal pain, Denies hematochezia and Denies change in bowel habits Musc Denies myalgias, Denies arthralgias and Denies joint swelling Skin/Breast Denies lesions and Denies unusual bruising Neuro Denies vertigo, Denies dizziness, Denies headache(s) and Denies focal weakness Endo Denies fatigue Physical exam (Primary Care) Vital Signs: Last Vital Signs Temp 96.9 F 12/07/24 09:00 Pulse 69 12/07/24 09:00 BP 110/68 12/07/24 09:00 Pulse Ox 98 12/07/24 09:00 Oxygen Delivery Method Room Air 12/07/24 09:00 BMI result Body Mass Index 28.8 Tobacco/Smoking Status: Tobacco use Status Tobacco use date assessed 12/07/24 12/07/24 09:05 Patient Tobacco Use Status Never used Tobacco 12/07/24 09:05 e-Cigarette/Vaping Use Never Used 12/07/24 09:05 PHQ-9: PHQ-9 Score PHQ-9: Total score 0 12/07/24 09:05 Depression Screening Interpretation: Negative Thrive Assessment: Date of Thrive Assessment Date Thrive assessed 11/30/24 12/07/24 09:05 Currently or been in a relationship where the following occur: No concerns reported Const General: cooperative, healthy appearing and no acute distress Orientation/consciousness: oriented to person, oriented to place and oriented to time HENMT Head: Yes normal to inspection, Yes normocephalic and Yes atraumatic Mouth: Normal oral and palatal mucosa present and tongue normal Throat: Yes posterior oropharynx normal and Yes uvula midline Eyes General: appearance normal, both eyes and all related structures Neck Neck: Yes normal visual inspection, Yes full ROM and Yes no lymphadenopathy Thyroid: Thyroid normal Carotids: normal carotid upstroke Chest Chest palpation & inspection: normal inspection of the chest Resp Effort & Inspection: normal respiratory effort and able to speak in complete sentences Auscultation: clear to auscultation bilaterally Cardio Jugular venous distension: no JVD Palpation: normal PMI Rate: regular rate Rhythm: regular rhythm Heart sounds: S1 normal heart sound present and S2 normal heart sound present GI Inspection: Yes normal to inspection Palpation (GI): Soft to palpation and No hepatosplenomegaly present Auscultation: normal bowel sounds General: Yes no CVA tenderness Back/Spine/Pelvis Back: no CVA tenderness Skin General skin exam: no rashes or lesions noted Neuro General: oriented to person, oriented to place and oriented to time Extrem General: Yes normal to inspection and Yes full ROM Coding Level of Care Code Est Pt Prev Care 40-64y(24144) Diagnoses Physical exam Z00.00 Hypertension I10 Assessment & Plan Assessment & Plan (1) Physical exam: Code(s): Z00.00 - Encounter for general adult medical examination without abnormal findings Category: Medical Plan: stable (2) Hypertension: Code(s): I10 - Essential (primary) hypertension Category: Medical Plan: stable; same rx Medications: New lorazepam 1 mg PO Q4-6H PRN 20 tabs 0RF anxiety
[2024-12-07 09:00] VITALS: BP 110/68; PULSE 69; TEMP 36.1; O2SAT 98; BMI 28.8
--- OUTSIDE RECORDS SUMMARY | 2024-12-07 09:30 | XMS_ITS | Patient Health Record ---
Author Organization [facility] Address [address] [place] [address] Care Team Providers Care Transfer Driver Name Role Phone Bruce Covarrubias MD Primary Care Provider Heladio Malhotra [phone] ALLERGIES No Known Allergies RESULTS Component Value Reference Range Notes TSH reflex Free T4 Reviewed date:01/25/2024 06:11:02 PM Interpretation: Performing Lab:[facility], [address] [place] [phone] Notes/Report: TSH reflex Free T4 0.80 0.32-4.0 uIU/mL Giardia Ag Stool EIA Reviewed date:01/30/2024 10:31:56 PM Interpretation: Performing Lab:[facility], [address] [place] [phone] Notes/Report: Giardia Ag Stool EIA SEE NOTE GIARDIA AG, EIA, STOOL Micro Number: [id number] Test Status: Final Specimen Source: Stool Specimen Quality: Adequate Giardia Result 1: Not Detected Reference Range: Not Detected NOTE: Due to intermittent shedding, one negative sample does not necessarily rule out the presence of a parasitic infection. THIS TEST WAS PERFORMED AT: [facility] [address] [place] [phone] ARLEY HUFFMAN MD Calprotectin, Fecal Reviewed date:02/01/2024 06:35:40 PM Interpretation: Performing Lab:[facility], [address] [place] [phone] Notes/Report: Calprotectin, Fecal 53 Reference Range: <50 Normal 50-120 Borderline >120 Elevated Calprotectin in Crohn's disease and ulcerative colitis can be five to several thousand times above the reference population (50 mcg/g or less). Levels are usually 50 mcg/g or less in healthy patients and with irritable bowel syndrome. Repeat testing in 4-6 weeks is suggested for borderline values. THIS TEST WAS PERFORMED AT: [facility] [address] [place] [address] TRINI CHATTERJEE MD,PHD,ANGELICA GI PANEL Reviewed date:01/26/2024 09:13:03 PM Interpretation: Performing Lab:[facility], [address] [place] [phone] Notes/Report: Campylobacter Not Detected Not Detect. Plesiomonas shigelloides Not Detected Not Detect. Salmonella Not Detected Not Detect. Vibrio Not Detected Not Detect. Vibrio Cholerae Not Detected Not Detect. Yersinia enterocolitica Not Detected Not Detect. E. coli EAEC Not Detected Not Detect. E. coli EPEC Not Detected Not Detect. E. coli ETEC Not Detected Not Detect. E. coli STEC Not Detected Not Detect. E. coli O157 Not applicable Not Detect. E. coli containing the O157 antigen are a subset of Shiga-like toxin-producing E. coli (STEC). Shigella sp./EIEC Not Detected Not Detect. Cryptosporidium Not Detected Not Detect. Cyclospora cayetanensis Not Detected Not Detect. Entamoeba histolytica Not Detected Not Detect. Giardia lamblia Not Detected Not Detect. Adenovirus F 40/41 Not Detected Not Detect. Astrovirus Not Detected Not Detect. Norovirus GI/GII Not Detected Not Detect. Rotavirus A Not Detected Not Detect. Sapovirus Not Detected Not Detect. All results must be correlated with clinical findings. Negative results do not exclude the possibility of gastrointestinal infection and should not be used as the sole basis for diagnosis, treatment, or other management decisions. Virus, bacteria, and parasite nucleic acid may persist in vivo independently of organism viability. Additionally, some organisms may be carried symptomatically. Detection of organism targets does not imply that the corresponding organisms are infectious or are the causative agents for clinical symptoms. There is a risk of false negative values due to the presence of sequence variants in the gene targets of the assay, amplification inhibitors in specimens, or inadequate numbers of organisms for amplification. The identification of several diarrheagenic E. coli pathotypes has historically relied upon phenotypic characteristics. This panel targets genetic determinants characteristic of most pathogenic strains, but may not detect all strains having phenotypic characteristics of a pathotype. The performance of this test has not been established for monitoring treatment of infection with any of the panel organisms. This assay is performed by Multiplexed PCR, utilizing the [employer] Array. Complete Blood Count Auto Di ff Reviewed date:01/25/2024 01:11:33 PM Interpretation: Performing Lab:[facility], [address] [place] [phone] Notes/Report: White Blood Count 5.9 4.8-10.8 X10*3/uL Red Blood Count 4.87 4.60-5.80 X10*6/uL Hemoglobin 14.8 14.0-18.0 g/dl Hematocrit 43.3 42.0-52.0 % Mean Corpuscular Volume 88.9 80.0-98.0 fL Mean Corpuscular Hemoglobin 30.4 27.0-33.0 pg Mean Corpuscular HGB Conc 34.2 31.0-36.0 g/dl Red Cell Distribution Width 13.0 11.0-16.0 % Platelet Count 186 160-400 X10*3/uL Mean Platelet Volume 10.6 9.4-12.4 fL Neutrophils Percent Auto 61.1 45-73 % Imm Gran Pct Auto 0.2 0.0-0.4 % Lymphocytes Percent Auto 21.5 20-40 % Monocytes Percent Auto 13.6 2-11 % Eosinophils Percent Auto 2.9 0-4 % Basophils Percent Auto 0.7 0-2 % NRBC Pct Auto 0.0 0.0-0.2 /100WBC Neutrophils Absolute Auto 3.6 2.0-8.3 x10*3/u L Imm Gran Abs Auto 0.01 0.00-0.03 X10*3/uL Lymphocytes Absolute Auto 1.3 1.2-4.9 X10*3/u L Monocytes Absolute Auto 0.8 0.1-1.2 X10*3/uL Eosinophils Absolute Auto 0.2 0.0-0.4 X10*3/u L Basophils Absolute Auto 0.0 0.0-0.2 X10*3/uL NRBC Abs Auto 0.000 0.0-0.012 X10*3/uL Erythrocyte Sedimentation Ra te Reviewed date:01/25/2024 03:57:05 PM Interpretation: Performing Lab:[facility], [address] [place] [phone] Notes/Report: Erythrocyte Sedimentation Rate 5 0-15 MM/HR Patients with polycythemia and many hemoglobin abnormalities may have depressed sed rates whereas patients with anemia may have elevated sed rates. Liver Panel Reviewed date:01/25/2024 06:10:38 PM Interpretation: Performing Lab:[facility], [address] [place] [phone] Notes/Report: Bilirubin Total 0.7 0.0-1.0 mg/dL Bilirubin Direct 0.2 0.0-0.5 mg/dL Aspartate Amino Transferase 23 5-37 U/L Alanine Aminotransferase 29 0-40 U/L Total Protein 7.6 6.5-8.0 g/dL Albumin Level 4.6 3.5-5.0 g/dL Alkaline Phosphatase 63 39-117 U/L C Reactive Protein Reviewed date:01/25/2024 06:10:47 PM Interpretation: Performing Lab:[facility], [address] [place] [phone] Notes/Report: C Reactive Protein 0.18 < or = 0.50 mg/dL Immunoglobulin A Reviewed date:01/28/2024 06:22:08 PM Interpretation: Performing Lab:[facility], [address] [place] [phone] Notes/Report: Immunoglobulin A 230 70-320 mg/dL THIS TEST WAS PERFORMED AT: [facility] [address] [place] [phone] ARLEY HUFFMAN MD Transglutaminase Ab IgG Reviewed date:02/07/2024 09:03:51 AM Interpretation: Performing Lab:[facility], [address] [place] [phone] Notes/Report: Transglutaminase Ab IgG 11.6 Value Interpretation ----- <15.0 Antibody not detected > or = 15.0 Antibody detected THIS TEST WAS PERFORMED AT: [facility] [address] [place] [phone] ARLEY HUFFMAN MD Transglutaminase IgA Reviewed date:01/28/2024 06:22:27 PM Interpretation: Performing Lab:[facility], [address] [place] [phone] Notes/Report: Transglutaminase IgA <1.0 Value Interpretation ----- <15.0 Antibody not detected > or = 15.0 Antibody detected THIS TEST WAS PERFORMED AT: [facility] [address] [place] [phone] ARLEY HUFFMAN MD Gliadin Ab Panel Reviewed date:01/28/2024 06:22:33 PM Interpretation: Performing Lab:[address] [phone] Notes/Report: Gliadin Deamidated IgA Ab 1.0 Value Interpretation ----- <15.0 Antibody not detected > or = 15.0 Antibody detected Gliadin Deamidated IgG Ab <1.0 Value Interpretation ----- <15.0 Antibody not detected > or = 15.0 Antibody detected THIS TEST WAS PERFORMED AT: [facility] [address] [place] [phone] ARLEY HUFFMAN MD Endomysial IgA rflx Titer Reviewed date:01/28/2024 06:22:39 PM Interpretation: Performing Lab:[facility], [address] [place] [phone] Notes/Report: Endomysial IgA Antibody Negative Negative THIS TEST WAS PERFORMED AT: [facility]/[address] [phone] CORTNEY YATES MD,PHD Endomysial Titer TNP Leukocytes Stool Qualitative Reviewed date:01/26/2024 09:11:03 PM Interpretation: Performing Lab:[address] [phone] Notes/Report: Leukocytes Stool Qualitative NEGATIVE NEGATIVE Ova and Parasite Reviewed date:01/30/2024 10:31:32 PM Interpretation: Performing Lab:[address] [phone] Notes/Report: Ova and Parasite SEE NOTE OVA AND PARASITES, CONC AND PERM SMEAR Micro Number: [id number] Test Status: Final Specimen Source: Stool Specimen Quality: Adequate CONCENTRATION 1: No ova or parasites seen TRICHROME 1: No ova or parasites seen Routine Ova and Parasite exam may not detect some parasites that occasionally cause diarrheal illness. Cryptosporidium Antigen and/or Cyclospora and Isospora Exam may be ordered to detect these parasites. One negative sample does not necessarily rule out the presence of a parasitic infection. For additional information, please refer to https://education.iMega/faq/KWI220 (This link is being provided for informational/ educational purposes only.) THIS TEST WAS PERFORMED AT: [facility] [address] [address] ASCENCION HORTA MD CDiff Gene PCR Reviewed date:01/26/2024 09:10:55 PM Interpretation: Performing Lab:[address] [phone] Notes/Report: CDiff Gene PCR NEGATIVE Negative If C. difficile strongly suspected despite one negative test, a second test may be sent vs. empiric treatment for C. difficile infection. REASON FOR REFERRAL No Information MEDICATIONS Medication SIG (Take, Route, Frequency, Duration) Notes Start Date End Date Status Chlorthalidone 25 MG 1 tablet in the mor jose with food Orally for 30 day(s) Active Dicyclomine HCl 10 MG 1 or 2 capsules Or ally Every 4 to 6 hours as needed for abdominal cramps/discomfort and loose BM's for 30 day(s) 01/25/2024 Active Olopatadine HCl 0.1 % PLACE 1 DROP INTO THE EYES 2 TIMES A DAY Ophthalmic for 25 Active Triamcinolone Acetonide 0.5 % External for 30 Active Metoprolol Succinate ER 50 MG TAKE 1 TABLET BY MOUTH DAILY Oral for 90 Active Aleve 220 MG 1 tablet with food o r milk as needed Orally every 12 hrs Active Valsartan 160 MG Oral for 90 A ctive SOCIAL HISTORY Sex Assigned At : Social History Observation Description Sex Assigned At Unknown PROBLEMS Problem Type ICD Code Onset Dates Problem Status W/U Status Risk SNOMED Code Notes Problem Colon cancer screening (Z12.11) Active confirmed 183886148 Problem Diarrhea (R19.7) Active confirmed Diarr hea (13519018) Problem Change in bowel habits (R19.4) Active confirmed Change in bow el habit (12259757) Problem Diverticulosis of large intestine without perforation or abscess without bleeding (K57.30) Active confirmed Diverticul ar disease of colon (757480519) Problem Preprocedural examination (Z01.818) Active confirmed [id number] VITAL SIGNS Blood pressure diastolic 00 mm Hg 01/25/2024 Height 70 in 01/25/2024 Blood pressure systolic 00 mm Hg 01/25/2024 Weight 196 lbs 01/25/2024 BMI 28.12 kg/m2 01/25/2024 Encounters Encounter Location Date Provider Diagnosis [facility] [address] [place] [phone] 04/04/2024 Heladio Francisco [facility] [address] [place] [phone] 01/25/2024 Heladio Francisco Change in bowel habits R19.4 and Diarrhea R19.7 [facility] [address] [place] [phone] 01/11/2024 Heladio Francisco [facility] [address] [place] [phone] 04/03/2024 Heladio Francisco ASSESSMENTS Encounter Date Diagnosis Assessment Notes Treatment Notes Treatment Clinical Notes 01/25/2024 Diarrhea (ICD-10 - R19.7) 01/25/2024 Change in bowel habits (ICD-10 - R19.4) PLAN OF TREATMENT Pending Test Test Name Order Date LIVER PROFILE 01/25/2024 CRP 01/25/2024 CBC w DIFF 01/25/2024 SED RATE (ESR) 01/25/2024 CELIAC PANEL #10 01/25/2024 OVA & PARASITES (O&P) 01/25/2024 STOOL WBC 01/25/2024 C DIFFICILE RFLX PCR 01/25/2024 Future Test Test Name Order Date COLONOSCOPY 02/16/2013 COLONOSCOPY 07/01/2023 Insurance Providers Payer Name Payer Address Payer Phone Subscriber Number Group Number Insured Name Patient Relationship to Insured Coverage Start Date Coverage End Date JAIME ELIZABETH/[employer] [address] [place] [address] [id number] LISA HINSON Self - patient is the insured MEDICAL (GENERAL) HISTORY Medical History History ICD Code Denies ND,DM,CVA,Lung disease,renal dise ase Hypertension Negative screening colonosco py in 04/2013 and 10/2023 except for hyperplastic polyps Surgical History Surgery Date(Month/Year) Hand surgery Deviated septum Knee left Rotator cuff
--- OUTSIDE RECORDS SUMMARY | 2024-12-07 09:30 | XMS_ITS ---
Author Organization [facility] Address [address] [place] [address] Care Team Providers Care Web Project Manager Name Role Phone Bruce Covarrubias MD Primary Care Provider Heladio Malhotra [phone] REASON FOR VISIT abdominal pain Encounters Encounter Location Date Provider Diagnosis [facility] [address] [place] [address] 04/04/2024 Heladio Francisco PLAN OF TREATMENT No Information
--- OUTSIDE RECORDS SUMMARY | 2024-12-07 09:30 | XMS_ITS | Clinical Summary ---
Author Organization [facility] Address [address] [place] [address] Phone Care Team Providers Care Upstairs Maid Name Role Phone Bruce Covarrubias MD Primary Care Provider Allergies No known active allergies Medications metoprolol succinate XL (TOPROL XL) 50 MG 24 hr tablet Take 50 mg by mouth 1 (one) time each day 07/21/2021 Active olopatadine (PATANOL) 0.1 % ophthalmic solution 05/09/2021 Active chlorthalidone 25 MG tablet TAKE 1 TABLET BY MOUTH EVERY DAY 90 tablet 3 08/31/2023 Active chlorthalidone 25 MG tablet Take 0.5 tablets (12.5 mg total) by mouth 1 (one) time each day 45 tablet 3 08/31/2023 Active valsartan (DIOVAN) 160 MG tablet TAKE 1 TABLET BY MOUTH 1 TIME EACH DAY. 90 tablet 3 09/27/2023 Active chlorthalidone 25 MG tablet TAKE 1 TABLET BY MOUTH EVERY DAY 90 tablet 3 09/10/2024 Active Active Problems Problem Noted Date Diagnosed Date Adrenal adenoma <Unspecified side> 03/28/2024 Essential (primary) hypertension 07/22/2021 Encounters Date Type Department Care Team Description 09/09/2024 Refill [facility] [address] [place] [phone] Severino Moreno MD from Last 3 Months Immunizations Name Administration Dates Next Due Tdap 05/14/2023 Family History Medical History Relation Comments Hypertension Father Cancer Mother Relation Status Comments Father Mother Social History Tobacco Use Types Packs/Day Years Used Date Smoking Tobacco: Never Smokeless Tobacco: Never Tobacco Cessation:Counseling Given: Not Answered Alcohol Use Standard Drinks/Week Comments Never 0 (1 standard drink = 0.6 oz pur e alcohol) Sex and Gender Information Value Date Recorded Sex Assigned at Male 02/09/2022 3:12 PM EDT Legal Sex Male 3:23 PM EDT Gender Identity Male 02/09/2022 3:12 PM EDT Sexual Orientation Straight 02/09/2022 3: 12 PM EDT Last Filed Vital Signs Vital Sign Reading Time Taken Comments Blood Pressure 117/59 03/28/2024 1:33 PM EDT Pulse 87 03/28/2024 1:33 PM EDT Temperature - - Respiratory Rate - - Oxygen Saturation 96% 03/28/2024 1:33 PM EDT Inhaled Oxygen Concentration - - Weight 88.6 kg (195 lb 6.4 oz) 03/28/2024 1:33 P M EDT Height - - Body Mass Index - - Plan of Treatment Upcoming Encounters Date Type Department Care Team (Late st Contact Info) Description 03/28/2025 1:15 PM EDT Office Visit [facility] [address] [phone] Severino Moreno MD [address] [phone] Health Maintenance Due Date Last Done Comments Pneumococcal Vaccine: Pediat rics (0 to 5 Years) and At-Risk Patients (6 to 64 Years) (1 of 2 - PCV) 1968 Colorectal Cancer Screening: Annual FOBT 2011 Colorectal Cancer Screening: Colonoscopy 2011 Colorectal Cancer Screening: Sigmoidoscopy 2011 Influenza Vaccine (#1) 2024 Hepatitis B Vaccine Aged Out No longe r eligible based on patient's age to complete this topic Insurance [facility] Care Teams Upstairs Maid Relationship Specialty Start Date End Date Bruce Covarrubias MD [address] [place], [place] PCP - General Internal Medicine 06/09/21
--- OUTSIDE RECORDS SUMMARY | 2024-12-07 09:30 | XMS_ITS ---
Author Organization [facility] Address [address] [place] [address] Care Team Providers Care Log Processor Operator Name Role Phone Bruce Covarrubias MD Primary Care Provider Heladio Malhotra [phone] REASON FOR VISIT cancelled appt for tomorrow Encounters Encounter Location Date Provider Diagnosis [facility] [address] [place] [phone] 04/03/2024 Heladio Francisco PLAN OF TREATMENT No Information
--- OUTSIDE RECORDS SUMMARY | 2024-12-07 09:31 | XMS_ITS ---
Author Organization [facility] Address [address] [place] [address] Care Team Providers Care Suppression Crew Leader Name Role Phone Bruce Covarrubias MD Primary Care Provider Heladio Malhotra [phone] ALLERGIES No Known Allergies RESULTS Component Value Reference Range Notes TSH reflex Free T4 Reviewed date:01/25/2024 06:11:02 PM Interpretation: Performing Lab:[facility], [address] [place] [phone] Notes/Report: TSH reflex Free T4 0.80 0.32-4.0 uIU/mL Giardia Ag Stool EIA Reviewed date:01/30/2024 10:31:56 PM Interpretation: Performing Lab:[facility], [address] [place] [phone] Notes/Report: Giardia Ag Stool EIA SEE NOTE GIARDIA AG, EIA, STOOL Micro Number: [id number] Test Status: Final Specimen Source: Stool Specimen Quality: Adequate Giardia Result 1: Not Detected Reference Range: Not Detected NOTE: Due to intermittent shedding, one negative sample does not necessarily rule out the presence of a parasitic infection. THIS TEST WAS PERFORMED AT: [facility] [address] [place] [phone] ARLEY HUFFMAN MD Calprotectin, Fecal Reviewed date:02/01/2024 06:35:40 PM Interpretation: Performing Lab:[facility], [address] [place] [phone] Notes/Report: Calprotectin, Fecal 53 Reference Range: <50 [...] borderline values. THIS TEST WAS PERFORMED AT: [employer] [address] [place] [address] TRINI CHATTERJEE MD,PHD,ANGELICA GI PANEL Reviewed date:01/26/2024 09:13:03 PM Interpretation: Performing Lab:[facility], [address] [place] [phone] Notes/Report: Campylobacter Not Detected Not Detect. Plesiomonas [...] is performed by Multiplexed PCR, utilizing the Zipano Array. REASON FOR VISIT stomach pain/diarrhea /appt per dr. morley MEDICATIONS Medication SIG (Take, Route, Frequency, Duration) [...] 160 MG Oral for 90 A ctive PROBLEMS Problem Type ICD Code Onset Dates Problem Status W/U Status Risk SNOMED Code Notes Problem Change in bowel habits (R19.4) Active confirmed Change in bowel habit (09713494) Problem Diarrhea (R19.7) Active confirmed Diarrhea (73894397) VITAL SIGNS Blood pressure systolic 00 mm Hg 01/25/20 24 Blood pressure diastolic 00 mm Hg 024 Height 70 in 01/25/2024 Weight 196 lbs 01/25/2024 BMI 28.12 kg/m2 01/25/2024 Encounters Encounter Location Date Provider Diagnosis [facility] [address] [place] [address] 01/25/2024 Heladio Morley Change in bowel habits R19.4 and Diarrhea R19.7 ASSESSMENTS Encounter Date Diagnosis Assessment Notes Treatment Notes Treatment Clinical Notes 01/25/2024 Change in bowel habits (ICD-10 - R19.4) 01/25/2024 Diarrhea (ICD-10 - R19.7) PLAN OF TREATMENT Medication Medication Name Sig Start Date Stop Date Notes Dicyclomine HCl 10 MG 1 or 2 capsules Or ally Every 4 to 6 hours as needed for abdominal cramps/discomfort and loose BM's for 30 day(s) 01/25/2024 Pending Test Test Name Order Date LIVER PROFILE 01/25/2024 CRP 01/25/2024 CBC w DIFF 01/25/2024 SED RATE (ESR) 01/25/2024 CELIAC PANEL #10 01/25/2024 OVA & PARASITES (O&P) 01/25/2024 STOOL WBC 01/25/2024 C DIFFICILE RFLX PCR 01/25/2024 Next Appt Details Follow Up: Summer 2023, Reas on: Progress Notes * Examination Category Sub-Category Detail Notes General Examination GENERAL APPEARANCE: pleasant , well nourished, well developed, in no acute distress EYES: sclera non-icteric NECK/THYROID: no cervical lymphade nopathy, neck supple HEART: S1, S2 normal LUNGS: clear to auscultatio n bilaterally ABDOMEN: normal bowel sounds, no guarding or rigidity, no hepatosplenomegaly, no masses palpable, soft, nontender, nondistended. NEUROLOGIC: alert and oriented SKIN: nonjaundiced, no spi olga angiomata. EXTREMITIES: no edema ORAL CAVITY: mucosa moist
== END 2024-12-07 09:21 | disposition home or self-care (01) ==
PROVIDERS: PCP Internal Medicine; Visit Provider Internal Medicine
DX: Z00.00 Encounter for general adult medical examination without abnormal findings (principal); I10 Essential (primary) hypertension

== ENCOUNTER → 2024-12-07 08:54 | Outpatient (BNVA) | payer BC, SELFPAY | PROVIDERS: PCP Internal Medicine; Visit Provider Internal Medicine ==

== ENCOUNTER 2025-05-28 09:01 | Outpatient (AMB) | payer BC, SELFPAY ==
--- OUTSIDE RECORDS SUMMARY | 2025-05-28 09:31 | XMS_ITS | Clinical Summary ---
Author Organization [facility] Address [address] [address] Phone Care Team Providers Care Heat Treat Operator Name Role Phone Eric Hogan Primary Care Provider [phone] Allergies No known active allergies Medications metoprolol [...] Encounters Date Type Department Care Team Description 03/28/2025 1:15 PM EDT Office Visit [facility] [facility] [address] [place] [address] Severino Moreno MD Essential (primary) hypertension (Primary Dx); Adrenal adenoma <Unspecified side> from Last 3 Months Immunizations Immunization Administration Dates Next Due Tdap 05/14/2023 Family [...] Sign Reading Time Taken Comments Blood Pressure 118/70 03/28/2025 1:11 PM EDT Pulse 82 03/28/2025 1:11 PM EDT Temperature - - Respiratory Rate - - Oxygen Saturation 97% 03/28/2025 1:11 PM EDT Inhaled Oxygen Concentration - - Weight 87.9 kg (193 lb 12.8 oz) 03/28/2025 1:11 PM EDT Height - - Body Mass Index - - Plan of Treatment Upcoming Encounters Date Type Department Care Team (Late st Contact Info) Description 03/27/2026 1:15 PM EDT Office Visit [facility] [address] [phone] Severino Moreno MD [address] [phone] Health Maintenance Due Date Last Done Comments Pneumococcal Vaccine: 50+ Ye ars (1 of 2 - PCV) 1981 Colorectal Cancer Screening: Annual FOBT 2011 Colorectal Cancer Screening: Colonoscopy 2011 Colorectal Cancer Screening: Sigmoidoscopy 2011 Influenza Vaccine (#1) 2025 Hepatitis B Vaccine Aged Out No longe r eligible based on patient's age to complete this topic Insurance [facility] Care Teams Heat Treat Operator Relationship Specialty Start Date End Date Eric Hogan PA [address] [place] [address], [address] [place] [address] PCP - General Physician Metal Building Assembler 03/28/25
--- OUTSIDE RECORDS SUMMARY | 2025-05-28 09:31 | XMS_ITS ---
Author Name [facility] Organization Unknown Care Team Organization Name Specialty Phone Email Start Date End Da britt [facility] the Splicing Machine Operator ([facility]) 08/25/2024
== END 2025-05-28 10:05 | disposition home or self-care (01) ==
LOC: HO.HMGAL 09:01
PROVIDERS: PCP Physician Assistant; Visit Provider Registered Nurse Emergency
DX: J30.89 Other allergic rhinitis (principal)
CPT/HCPCS: 95117; 95165

== ENCOUNTER 2025-06-13 10:45 | Outpatient (AMB) | payer BC, SELFPAY ==
--- OUTSIDE RECORDS SUMMARY | 2025-06-13 12:28 | XMS_ITS | Encounter Summary ---
Author Organization [facility] Address [address] [place] [address] Phone Care Team Providers Care Train System Operator Name Role Phone Bruce Covarrubias MD Primary Care Provider [phone] Eric Hogan Primary Care Provider + Encounter Details Date Type Department Care Team (Late st Contact Info) Description 05/14/2023 Procedure [facility], Ct Scan - [facility] [address] [place] [address] Social History Tobacco Use Types Packs/Day Years Used Date Smoking Tobacco: Former Smokeless Tobacco: Never Education Answer Date Recorded Are you interested in more education? Not on brown e 02/06/2023 Are you concerned about learning? Not on file 02/06/2023 No 02/06/2023 No 02/06/2023 Digital Access Answer Date Recorded No 03/07/2023 No 03/07/2023 No 03/07/2023 Reliable internet access at home? Not on file 03/07/2023 Device with a working camera? Not on file Intimate Partner Violence Answer Date R ecorded Are you denied basic needs s uch as food, clothing, or medical care? No 05/14/2023 In the past 12 months have y ou been in a relationship with a person who hurts, threatens, or tries to control you? No 05/14/2023 Are you denied basic needs s uch as food, clothing, or medical care? No 05/14/2023 In the past 12 months have y ou been in a relationship with a person who hurts, threatens, or tries to control you? No 05/14/2023 Sex and Gender Information Value Date Recorded Sex Assigned at Not on file Legal Sex Male 9:32 AM EDT Gender Identity Not on file Sexual Orientation Not on file documented as of this encounter Functional Status * Calculated C-SSRS Risk Score (Lifetime/Recent) Answer Date of Assessment Author No Risk Indicated 05/14/2023 4:54 PM EDT Bart Ortiz RN * [place] Suicide Severity Rating Scale (Screener/Recent Self-Report) Question Answer Date of Assessment Author 1. Wish to be (Past 1 Month) No 023 4:54 PM EDT Bart Prado RN 2. Non-Specific Active Suici constantin Thoughts (Past 1 Month) No 05/14/2023 4:54 PM EDT Leonard Prado RN 6. Suicidal Behavior (Lifetime) No 4:54 PM EDT Bart Prado RN documented as of this encounter Plan of Treatment Not on file documented as of this encounter Visit Diagnoses Not on filedocumented in this encounter Additional Health Concerns Infection Onset Date Last Indicated Resolved Time CoV-Risk 12/17/2024 12/17/2024 12/17/2024 1:56 PM EDT COVID-19 12/17/2024 12/17/2024 01/07/2025 1:21 AM EDT documented as of this encounter Care Teams Train System Operator Relationship Specialty Start Date End Date Bruce Covarrubias MD [address] [place] [address] [address] PCP - General Internal Medicine 02/13/22 05/09/25 Eric Hogan PA [address] [place] [address] PCP - General Physician Tissue Technician 05/10/25 documented as of this encounter Additional Source Comments The information contained in this document represents components of the legal health record. It is not the complete legal health record.[facility]
--- OUTSIDE RECORDS SUMMARY | 2025-06-13 12:28 | XMS_ITS | Encounter Summary ---
Author Organization [facility] Address [address] [place] [address] Phone Care Team Providers Care Real Estate Administrator Name Role Phone Bruce Covarrubias MD Primary Care Provider [phone] Eric Hogan Primary Care Provider + Encounter Details Date Type Department Care Team (Late st Contact Info) Description 05/14/2023 Procedure Pass [facility], Ct Scan - [facility] [address] [place] [address] Social History Tobacco Use Types Packs/Day Years [...] 4:54 PM EDT Bart Ortiz RN * [place] Suicide Severity Rating Scale (Screener/Recent Self-Report) Question [...] documented as of this encounter Care Teams Real Estate Administrator Relationship Specialty Start Date End Date Bruce Covarrubias MD [address] [place] [address] [address] PCP - General Internal Medicine 02/13/22 05/09/25 Eric Hogan PA [address] [place] [address] PCP - General Physician Lozenge Maker 05/10/25 documented as of this encounter Additional Source Comments The information contained in this document represents components of the legal health record. It is not the complete legal health record.[facility]
--- OUTSIDE RECORDS SUMMARY | 2025-06-13 12:28 | XMS_ITS | Encounter Summary ---
Author Organization [facility] Address [address] [place] [address] Phone Care Team Providers Care Yarn Washer Name Role Phone Bruce Covarrubias MD Primary Care Provider [phone] Eric Hogan Primary Care Provider + Encounter Details Date Type Department Care Team (Late st Contact Info) Description 05/14/2023 Procedure Pass [facility], Ct Scan - [facility] [address] [place] [address] Social History Tobacco Use Types Packs/Day Years [...] 4:54 PM EDT Bart Ortiz RN * [place] Suicide Severity Rating Scale (Screener/Recent Self-Report) Question [...] documented as of this encounter Care Teams Yarn Washer Relationship Specialty Start Date End Date Bruce Covarrubias MD [address] [place] [address] [address] PCP - General Internal Medicine 02/13/22 05/09/25 Eric Hogan PA [address] [place] [address] PCP - General Physician Finance Controller 05/10/25 documented as of this encounter Additional Source Comments The information contained in this document represents components of the legal health record. It is not the complete legal health record.[facility]
--- OUTSIDE RECORDS SUMMARY | 2025-06-13 12:28 | XMS_ITS | Clinical Summary ---
Author Organization [facility] Address [address] [place] [address] [place] [address] Phone Care Team Providers Care Kiln Charger Name Role Phone Eric Hogan Primary Care Provider + Allergies No known active allergies Medications metoprolol succinate (TOPROL-XL) 50 MG 24 hr tablet Take 50 mg by mouth daily. 2 Active chlorthalidone (HYGROTON) 25 MG tablet Take 25 mg by mouth daily. 2 Active NIFEdipine (PROCARDIA XL) 30 MG 24 hr tablet Take 30 mg by mouth. 2 Active valsartan (DIOVAN) 160 MG tablet TAKE 1 TABLET BY MOUTH 1 TIME EACH DAY. 2 Active olopatadine (PATANOL) 0.1 % ophthalmic solution PLACE 1 DROP INTO THE EYES 2 TIMES A DAY 3 Active sildenafiL (VIAGRA) 100 mg tablet PLEASE SEE ATTACHED FOR DETAILED DIRECTIONS 3 Active dicyclomine (BENTYL) 10 MG capsule PLEASE SEE ATTACHED FOR DETAILED DIRECTIONS 5 Active cetirizine (ZYRTEC) 10 MG tablet Take 1 tablet (10 mg total) by mouth daily. 30 tablet 5 06/09/20 25 predniSONE (DELTASONE) 10 MG tablet Take 4 tablets (40 mg total) by mouth daily for 5 days. 20 tablet 5 05/15/20 25 Active Problems Problem Noted Date Diagnosed Date Essential (primary) hypertension 07/22/2021 Encounters Date Type Department Care Team Description 06/05/2025 Refill [facility] at [address] [address] Estrellita Fuentes NP Med Change Request 05/10/2025 12:20 PM EDT Office Visit [facility] at [address] [address] Estrellita Fuentes NP Bee sting reaction, undetermined intent, initial encounter (Primary Dx) from Last 3 Months Immunizations Immunization Administration Dates Next Due Tdap 05/14/2023 Social History Tobacco Use Types Packs/Day Years Used Date Smoking Tobacco: Former Smokeless Tobacco: Never Tobacco Cessation:Counseling Given: Not Answered Education Answer Date Recorded Are you interested [...] on file Sexual Orientation Not on file Last Filed Vital Signs Vital Sign Reading Time Taken Comments Blood Pressure 113/77 05/10/2025 12:41 PM EDT Pulse 64 05/10/2025 12:41 PM EDT Temperature 36.6 C (97.9 F) 05/10/2025 12:41 PM EDT Respiratory Rate 17 05/10/2025 12:41 PM EDT Oxygen Saturation 99% 05/10/2025 12:41 PM EDT Inhaled Oxygen Concentration - - Weight 86.2 kg (190 lb) 05/14/2023 4:45 PM EDT Height 175.3 cm (5' 9 ) 05/14/2023 4:45 PM EDT Body Mass Index 28.06 05/14/2023 4:45 PM EDT Plan of Treatment Health Maintenance Due Date Last Done Comments LIPID PANEL 1962 DEPRESSION SCREENING 1974 SMOKING Hx and SMOKELESS TOB ACCO SCREENING 1975 HEPATITIS C SCREENING 1980 HIV ONE-TIME SCREENING (18-6 5 YEARS) 1980 COLOGUARD 2007 COLONOSCOPY 2007 COLORECTAL CANCER SCREENING 2007 FIT TEST 2007 FOBT 2007 SIGMOIDOSCOPY 2007 VIRTUAL COLONOSCOPY 2007 PNEUMOCOCCAL VACCINES (50+ y ears) (1 of 1 - PCV) 2012 ZOSTER VACCINES (1 of 2) 2012 CREATININE LEVEL 05/14/2024 05/14/2023 POTASSIUM LEVEL 05/14/2024 05/14/2023 COVID-19 VACCINE (1 - 2023-2 5 season) 2024 INFLUENZA VACCINE (#1) 2025 08/13/2016 BLOOD PRESSURE 11/10/2025 05/10/2025 SCREENING FOR DIABETES 05/14/2026 05/14/2023 Adult Td,Tdap Booster 05/14/2033 05/14/2023 RSV VACCINE (1 - 1-dose 75+ series) 2037 HEPATITIS A VACCINES Aged Out No long er eligible based on patient's age to complete this topic HIB VACCINES Aged Out No longer eligi ble based on patient's age to complete this topic MENINGOCOCCAL VACCINES (ACWY) Aged Out No longer eligible based on patient's age to complete this topic MENINGOCOCCAL VACCINES (B) Aged Out N o longer eligible based on patient's age to complete this topic Medical Devices Not on file Procedures Procedure Name Priority Date/Time Associated Diagnosis Comments BASIC METABOLIC PANEL STAT 05/14/2023 5:35 PM EDT from Last 3 Months or Most Recently Relevant to Health Maintenance Results * (ABNORMAL) Basic metabolic panel (05/14/2023 5:35 PM EDT) SODIUM 140 133 - 146 mmol/L [facility] CHLORIDE 101 96 - 108 mmol/L [facility] POTASSIUM 4.5 3.3 - 5.1 mmol/L [facility] CO2 25 21 - 35 mmol/L [facility] BUN 28(H) 6 - 19 mg/dL [facility] CREATININE 0.80 0.5 - 1.5 mg/dL [facility] GLUCOSE 113(H) 70 - 99 mg/dL [facility] CALCIUM 9.5 8.4 - 10.3 mg/dL [facility] EGFR 101 >59 mL/min/1.7 3m2 [facility] Comment:Estimated glomerular filtration rate calculated using the CKD-EPI refit equation. ANION GAP 19 10 - 20 mmol/L [facility] Blood 05/14/2023 5:35 PM EDT 05/14/2023 5:39 PM EDT us Cesar Wing MD LAB BLOOD ORDERABLES Final Result Performing Organization Address City/State/[facility] Co de Phone Number [facility] [address] [place] [address] from Last 3 Months or Most Recently Relevant to Health Maintenance [place] [address] [place] [address] OUT [facility] POS BLUE CROSS OUT OF STATE POS BLUE CROSS OUT OF [facility] POS BLUE [place] OUT OF [facility] POS BLUE CROSS OUT OF STATE POS BLUE CROSS OUT OF STATE POS BLUE CROSS OUT OF STATE POS BLUE CROSS OUT OF STATE POS BLUE CROSS OUT OF STATE POS Care Teams Kiln Charger Relationship Specialty Start Date End Date Eric Hogan PA [address] [place] [address] PCP - General Physician Shipping Order Clerk 05/10/25 Additional Source Comments The information contained in this document represents components of the legal health record. It is not the complete legal health record.[facility]
--- OUTSIDE RECORDS SUMMARY | 2025-06-13 12:28 | XMS_ITS | Encounter Summary ---
Author Organization [facility] Address [address] [place] [address] Phone Care Team Providers Care Garnetter Name Role Phone Bruce Covarrubias MD Primary Care Provider [phone] Eric Hogan Primary Care Provider + Encounter Details Date Type Department Care Team (Late st Contact Info) Description 05/14/2023 Procedure Pass [facility], Ct Scan - [facility] [address] [place] [address] Social History Tobacco Use Types Packs/Day Years [...] 4:54 PM EDT Bart Ortiz RN * [place] Suicide Severity Rating Scale (Screener/Recent Self-Report) Question [...] documented as of this encounter Care Teams Garnetter Relationship Specialty Start Date End Date Bruce Covarrubias MD [address] [place] [address] [address] PCP - General Internal Medicine 02/13/22 05/09/25 Eric Hogan PA [address] [place] [address] PCP - General Physician Vacuum Kettle Cook 05/10/25 documented as of this encounter Additional Source Comments The information contained in this document represents components of the legal health record. It is not the complete legal health record.[facility]
--- OUTSIDE RECORDS SUMMARY | 2025-06-13 12:28 | XMS_ITS | Clinical Summary ---
Author Organization [facility] Address [address] [address] Phone Care Team Providers Care Lime Hide Inspector Name Role Phone Eric Hogan Primary Care Provider [phone] Allergies No known active allergies Medications metoprolol [...] Office Visit [facility] [address]. [address] [facility] [address] [place] [address] Severino Moreno MD Essential (primary) [...] Visit [facility] [address] [address] Severino Moreno MD [address] [address] Health Maintenance Due Date Last Done Comments Pneumococcal Vaccine: 50+ Ye ars (1 of 2 - PCV) 1981 Colorectal Cancer Screening: Annual FOBT 2011 Colorectal Cancer Screening: Colonoscopy 2011 Colorectal Cancer Screening: Sigmoidoscopy 2011 Influenza Vaccine (#1) 2025 Hepatitis B Vaccine Aged Out No longe r eligible based on patient's age to complete this topic Insurance [facility] Care Teams Lime Hide Inspector Relationship Specialty Start Date End Date Eric Hogan PA [address] [place] [address], [address] [place] [address] PCP - General Physician Jute Bag Cutting Machine Operator 03/28/25
--- OUTSIDE RECORDS SUMMARY | 2025-06-13 12:28 | XMS_ITS | Encounter Summary ---
Author Organization [facility] Address [address] [place] [address] Phone Care Team Providers Care Stoneworking Sander Name Role Phone Eric Hogan Primary Care Provider + Reason for Visit * Reason Comments Med Change Request Encounter Details Date Type Department Care Team (Late st Contact Info) Description 06/05/2025 Refill [facility] at [address] [address] Estrellita Fuentes, BROOKE [address] [place] [address] [email or web address] Med Change Request Social History Tobacco Use Types Packs/Day Years [...] on file documented as of this encounter Plan of Treatment Not on file documented as of this encounter Visit Diagnoses Not on filedocumented in this encounter Care Teams Stoneworking Sander Relationship Specialty Start Date End Date Eric Hogan PA [address] [place] [address] PCP - General Physician Waiter/Waitress Club 05/10/25 documented as of this encounter Additional Source Comments The information contained in this document represents components of the legal health record. It is not the complete legal health record.[facility]
== END 2025-06-13 10:49 | disposition home or self-care (01) ==
LOC: HO.HMGAL 10:45
PROVIDERS: PCP Physician Assistant; Visit Provider Registered Nurse Emergency
DX: J30.89 Other allergic rhinitis (principal)
CPT/HCPCS: 95117; 95165

== ENCOUNTER 2025-06-25 13:44 | Outpatient (AMB) | payer BC, SELFPAY ==
--- OUTSIDE RECORDS SUMMARY | 2025-06-25 18:59 | XMS_ITS | Encounter Summary ---
Author Organization [facility] Address [address] [place] [address] Phone Care Team Providers Care Junior Graphic Designer Name Role Phone Bruce Covarrubias MD Primary Care Provider [phone] Eric Hogan Primary Care Provider + Encounter Details Date Type Department Care Team (Late st Contact Info) Description 05/14/2023 Procedure Pass [facility], Ct Scan - [facility] [address] [place] [address] Social History Tobacco Use Types Packs/Day Years [...] 4:54 PM EDT Bart Ortiz RN * [place] Suicide Severity Rating Scale (Screener/Recent Self-Report) Question [...] documented as of this encounter Care Teams Junior Graphic Designer Relationship Specialty Start Date End Date Bruce Covarrubias MD [address] [place] [address] [address] PCP - General Internal Medicine 02/13/22 05/09/25 Eric Hogan PA [address] [place] [address] PCP - General Physician Lease Out Worker 05/10/25 documented as of this encounter Additional Source Comments The information contained in this document represents components of the legal health record. It is not the complete legal health record.[facility]
--- OUTSIDE RECORDS SUMMARY | 2025-06-25 18:59 | XMS_ITS | Encounter Summary ---
Author Organization [facility] Address [address] [facility] [address] [place] [address] Phone Care Team Providers Care Parquetry Floor Layer Name Role Phone Eric Hogan Primary Care Provider + Reason for Visit * Reason Comments Med Change Request Encounter Details Date Type Department Care Team (Late st Contact Info) Description 06/05/2025 Refill [facility] at [address] [address] Estrellita Fuentes, BROOKE [address] [place] [address] [email or web address] Med Change Request Social History Tobacco Use [...] on filedocumented in this encounter Care Teams Parquetry Floor Layer Relationship Specialty Start Date End Date Eric Hogan PA [address] [place] [address] PCP - General Physician Crew Director 05/10/25 documented as of this encounter Additional Source Comments The information contained in this document represents components of the legal health record. It is not the complete legal health record.[facility]
--- OUTSIDE RECORDS SUMMARY | 2025-06-25 18:59 | XMS_ITS | Encounter Summary ---
Author Organization [facility] Address [address] [place] [address] Phone Care Team Providers Care Timber Inspector Name Role Phone Bruce Covarrubias MD Primary Care Provider [phone] Eric Hogan Primary Care Provider + Encounter Details Date Type Department Care Team (Late st Contact Info) Description 05/14/2023 Procedure Pass [facility], Ct Scan - [facility] [address] [place] [address] Social History Tobacco Use Types Packs/Day Years [...] 4:54 PM EDT Bart Ortiz RN * [place] Suicide Severity Rating Scale (Screener/Recent Self-Report) Question [...] documented as of this encounter Care Teams Timber Inspector Relationship Specialty Start Date End Date Bruce Covarrubias MD [address] [place] [address] [address] PCP - General Internal Medicine 02/13/22 05/09/25 Eric Hogan PA [address] [place] [address] PCP - General Physician Head Screen Worker 05/10/25 documented as of this encounter Additional Source Comments The information contained in this document represents components of the legal health record. It is not the complete legal health record.[facility]
--- OUTSIDE RECORDS SUMMARY | 2025-06-25 18:59 | XMS_ITS | Clinical Summary ---
Author Organization [facility] Address [address] [place] [address] Phone Care Team Providers Care Administrative Services Director Name Role Phone Eric Hogan Primary Care [...] mouth daily. 30 tablet 5 06/09/20 25 Active Problems Problem Noted Date Diagnosed Date Essential (primary) hypertension 07/22/2021 Encounters Date Type Department Care Team Description 06/05/2025 Refill [facility] at [address] [address] Estrellita Fuentes NP Med Change Request 05/10/2025 12:20 PM EDT Office Visit [facility] at [address] [address] Estrellita Fuentes NP Bee sting reaction, undetermined [...] LEVEL 05/14/2024 05/14/2023 POTASSIUM LEVEL 05/14/2024 05/14/2023 INFLUENZA VACCINE (#1) 2025 08/13/2016 COVID-19 VACCINE (1 - 2023-2 5 season) 2025 BLOOD PRESSURE 11/10/2025 05/10/2025 SCREENING FOR DIABETES [...] EDT) SODIUM 140 133 - 146 mmol/L [facility] CHLORIDE 101 96 - 108 mmol/L [facility] POTASSIUM 4.5 3.3 - 5.1 mmol/L [facility] CO2 25 21 - 35 mmol/L [facility] BUN 28(H) 6 - 19 mg/dL [facility] CREATININE 0.80 0.5 - 1.5 mg/dL [facility] GLUCOSE 113(H) 70 - 99 mg/dL [facility] CALCIUM 9.5 8.4 - 10.3 mg/dL [facility] EGFR 101 >59 mL/min/1.7 3m2 [facility] Comment:Estimated glomerular filtration rate calculated using the CKD-EPI refit equation. ANION GAP 19 10 - 20 mmol/L [facility] Blood 05/14/2023 5:3 5 PM EDT 05/14/2023 5:39 PM EDT Cesar Wing MD LAB BLOOD ORDERABLES Final Result [facility] [address] [place] [address] from Last 3 Months or Most Recently Relevant to Health Maintenance Insurance [facility] OUT OF STATE POS BLUE CROSS OUT OF STATE POS BLUE CROSS OUT OF STATE POS BLUE CROSS OUT OF STATE POS BLUE CROSS OUT OF STATE POS BLUE CROSS OUT OF STATE POS BLUE CROSS OUT OF STATE POS BLUE CROSS OUT OF [place] [place] [address] POS Care Teams Administrative Services Director Relationship Specialty Start Date End Date Eric Hogan PA [address] [place] [address] PCP - General Physician Learning And Development Consultant 05/10/25 Additional Source Comments The information contained in this document represents components of the legal health record. It is not the complete legal health record.[facility]
--- OUTSIDE RECORDS SUMMARY | 2025-06-25 18:59 | XMS_ITS | Clinical Summary ---
Author Organization [facility] Address [address] [address] Phone Care Team Providers Care Hardware Installer Name Role Phone Eric Hogan Primary Care Provider [phone] Allergies No known active allergies Medications metoprolol [...] Office Visit [facility] [address]. [address] [facility] [address] [place] [address] Severino Moreno MD Essential (primary) [...] and [facility] [address] [address] Severino Moreno MD [address] [address] Health Maintenance Due Date Last Done Comments Pneumococcal Vaccine: 50+ Ye ars (1 of 2 - PCV) 1981 Colorectal Cancer Screening: Annual FOBT 2011 Colorectal Cancer Screening: Colonoscopy 2011 Colorectal Cancer Screening: Sigmoidoscopy 2011 Influenza Vaccine (#1) 2025 Hepatitis B Vaccine Aged Out No longe r eligible based on patient's age to complete this topic Insurance [facility] Care Teams Hardware Installer Relationship Specialty Start Date End Date Eric Hogan PA [address] [place] [address], [address] [place] [address] PCP - General Physician Admission Nurse 03/28/25
--- OUTSIDE RECORDS SUMMARY | 2025-06-25 18:59 | XMS_ITS | Encounter Summary ---
Author Organization [facility] Address [address] [place] [address] Phone Care Team Providers Care Care Nurse Rn Name Role Phone Bruce Covarrubias MD Primary Care Provider [phone] Eric Hogan Primary Care Provider + Encounter Details Date Type Department Care Team (Late st Contact Info) Description 05/14/2023 Procedure Pass [facility], Ct Scan - [facility] 30 [place] [address] Social History Tobacco Use Types Packs/Day Years [...] 4:54 PM EDT Bart Ortiz RN * [place] Suicide Severity Rating Scale (Screener/Recent Self-Report) Question [...] documented as of this encounter Care Teams Care Nurse Rn Relationship Specialty Start Date End Date Bruce Covarrubias MD [address] [place] [address] [address] PCP - General Internal Medicine 02/13/22 05/09/25 Eric Hogan PA [address] [place] [address] PCP - General Physician Rn Ante Partum 05/10/25 documented as of this encounter Additional Source Comments The information contained in this document represents components of the legal health record. It is not the complete legal health record.[facility]
--- OUTSIDE RECORDS SUMMARY | 2025-06-25 18:59 | XMS_ITS | Encounter Summary ---
Author Organization [facility] Address [address] [place] [address] Phone Care Team Providers Care Medical Social Consultant Name Role Phone Bruce Covarrubias MD Primary Care Provider [phone] Eric Hogan Primary Care Provider + Encounter Details Date Type Department Care Team (Late st Contact Info) Description 05/14/2023 Procedure Pass [facility], Ct Scan - [facility] [address] [place] [address] Social History Tobacco Use Types Packs/Day Years [...] 4:54 PM EDT Bart Ortiz RN * [place] Suicide Severity Rating Scale (Screener/Recent Self-Report) Question [...] documented as of this encounter Care Teams Medical Social Consultant Relationship Specialty Start Date End Date Bruce Covarrubias MD [address] [place] [address] [address] PCP - General Internal Medicine 02/13/22 05/09/25 Eric Hogan PA [address] [place] [address] PCP - General Physician Vector Control Assistant 05/10/25 documented as of this encounter Additional Source Comments The information contained in this document represents components of the legal health record. It is not the complete legal health record.[facility]
== END 2025-06-25 13:47 | disposition home or self-care (01) ==
LOC: HO.HMGAL 13:44
PROVIDERS: PCP Physician Assistant; Visit Provider Registered Nurse Emergency
DX: J30.89 Other allergic rhinitis (principal)
CPT/HCPCS: 95117; 95165

== ENCOUNTER 2025-07-16 09:52 | Outpatient (AMB) | payer BC, SELFPAY ==
--- OUTSIDE RECORDS SUMMARY | 2025-07-16 11:16 | XMS_ITS | Encounter Summary ---
Author Organization [facility] Address [address] [facility] [address] [place] [address] Phone Care Team Providers Care Tours Captain Name Role Phone Eric Hogan Primary Care Provider + Reason for Visit * Reason Comments Med Change Request Encounter Details Date Type Department Care Team (Late st Contact Info) Description 06/05/2025 Refill [facility] at [address] [address] Estrellita Fuentes, BROOKE [address] [place] [address] [email or web address] Med Change Request Social History Tobacco Use [...] on filedocumented in this encounter Care Teams Tours Captain Relationship Specialty Start Date End Date Eric Hogan PA [address] [place] [address] PCP - General Physician Urogynaecologist 05/10/25 documented as of this encounter Additional Source Comments The information contained in this document represents components of the legal health record. It is not the complete legal health record.[facility]
--- OUTSIDE RECORDS SUMMARY | 2025-07-16 11:16 | XMS_ITS | Clinical Summary ---
Author Organization [facility] Address [address] [place] [address] [place] [address] Phone Care Team Providers Care Kiln Stoker Name Role Phone Eric Hogan Primary Care [...] SEE ATTACHED FOR DETAILED DIRECTIONS 5 Active Active Problems Problem Noted Date Diagnosed Date Essential (primary) hypertension 07/22/2021 Encounters Date Type Department Care Team Description 06/05/2025 Refill [facility] at [address] [address] Estrellita Fuentes NP Med Change Request 05/10/2025 12:20 PM EDT Office Visit [facility] at [address] [address] Estrellita Fuentes, BROOKE Bee sting reaction, undetermined intent, initial encounter [...] (#1) 2025 08/13/2016 COVID-19 VACCINE (1 - 2024-2 6 season) 2025 BLOOD PRESSURE 11/10/2025 05/10/2025 SCREENING [...] EDT) SODIUM 140 133 - 146 mmol/L [facility] CHLORIDE 101 96 - 108 mmol/L [facility] POTASSIUM 4.5 3.3 - 5.1 mmol/L [facility] CO2 25 21 - 35 mmol/L [facility] BUN 28(H) 6 - 19 mg/dL [facility] CREATININE 0.80 0.5 - 1.5 mg/dL [facility] GLUCOSE 113(H) 70 - 99 mg/dL [facility] CALCIUM 9.5 8.4 - 10.3 mg/dL [facility] EGFR 101 >59 mL/min/1.7 3m2 [facility] Comment:Estimated glomerular filtration rate calculated using the CKD-EPI refit equation. ANION GAP 19 10 - 20 mmol/L [facility] Blood 05/14/2023 5:35 PM EDT 05/14/2023 5:39 PM EDT us Cesar Wing MD LAB BLOOD ORDERABLES Final Result Performing Organization Address City/State/[facility] Co de Phone Number [facility] [address] [place], [place] [id number] from Last 3 Months or Most Recently Relevant to Health Maintenance Insurance [facility] OUT [facility] POS BLUE CROSS OUT OF STATE POS BLUE CROSS OUT OF [facility] POS BLUE CROSS OUT OF STATE POS BLUE CROSS OUT OF STATE POS BLUE CROSS OUT OF STATE POS BLUE CROSS OUT [place] [address] [address] [place] [address] OUT OF STATE POS Care Teams Kiln Stoker Relationship Specialty Start Date End Date Eric Hogan PA [address] [place] [address] PCP - General Physician Nut Sheller Machine Operator 05/10/25 Additional Source Comments The information contained in this document represents components of the legal health record. It is not the complete legal health record.[facility]
--- OUTSIDE RECORDS SUMMARY | 2025-07-16 11:17 | XMS_ITS | Encounter Summary ---
Author Organization [facility] Address [address] [place] [address] Phone Care Team Providers Care Director Intelligence Analysis Programs Name Role Phone Bruce Covarrubias MD Primary Care Provider [phone] Eric Hogan Primary Care Provider + Encounter Details Date Type Department Care Team (Late st Contact Info) Description 05/14/2023 Procedure Pass [facility], Ct Scan - [facility] 30 [place] [address] Social History Tobacco Use Types Packs/Day Years [...] 4:54 PM EDT Bart Ortiz RN * [place] Suicide Severity Rating Scale (Screener/Recent Self-Report) Question [...] documented as of this encounter Care Teams Director Intelligence Analysis Programs Relationship Specialty Start Date End Date Bruce Covarrubias MD [address] [place] [address] [address] PCP - General Internal Medicine 02/13/22 05/09/25 Eric Hogan PA [address] [place] [address] PCP - General Physician J2Ee Android Developer 05/10/25 documented as of this encounter Additional Source Comments The information contained in this document represents components of the legal health record. It is not the complete legal health record.[facility]
--- OUTSIDE RECORDS SUMMARY | 2025-07-16 11:17 | XMS_ITS | Encounter Summary ---
Author Organization [facility] Address [address] [place] [address] Phone Care Team Providers Care Sample Cutter Name Role Phone Bruce Covarrubias MD Primary Care Provider [phone] Eric Hogan Primary Care Provider + Encounter Details Date Type Department Care Team (Late st Contact Info) Description 05/14/2023 Procedure Pass [facility], Ct Scan - [facility] 30 [place] [address] Social History Tobacco Use Types Packs/Day Years [...] 4:54 PM EDT Bart Ortiz RN * [place] Suicide Severity Rating Scale (Screener/Recent Self-Report) Question [...] documented as of this encounter Care Teams Sample Cutter Relationship Specialty Start Date End Date Bruce Covarrubias MD [address] [place] [address] [address] PCP - General Internal Medicine 02/13/22 05/09/25 Eric Hgoan PA [address] [place] [address] PCP - General Physician Nuclear Technologist 05/10/25 documented as of this encounter Additional Source Comments The information contained in this document represents components of the legal health record. It is not the complete legal health record.[facility]
--- OUTSIDE RECORDS SUMMARY | 2025-07-16 11:17 | XMS_ITS | Clinical Summary ---
Author Organization [facility] Address [address] [address] Phone Care Team Providers Care Glass Calibrator Name Role Phone Eric Hogan Primary Care Provider [phone] Allergies No known active allergies Medications metoprolol [...] <Unspecified side> 03/28/2024 Essential (primary) hypertension 07/22/2021 Immunizations Immunization Administration Dates Next Due Tdap [...] Office Visit [facility] P. [address] [address] Severino Moreno MD [address] [id number] Health Maintenance Due Date Last Done Comments Pneumococcal Vaccine: 50+ Ye ars (1 of 2 - PCV) 1981 Colorectal Cancer Screening: Annual FOBT 2011 Colorectal Cancer Screening: Colonoscopy 2011 Colorectal Cancer Screening: Sigmoidoscopy 2011 Influenza Vaccine (#1) 2025 Hepatitis B Vaccine Aged Out No longe r eligible based on patient's age to complete this topic Insurance [facility] Care Teams Glass Calibrator Relationship Specialty Start Date End Date Eric Hogan PA [address] [place] [address], [address] [place] [address] PCP - General Physician Sales Operations Specialist 03/28/25
--- OUTSIDE RECORDS SUMMARY | 2025-07-16 11:17 | XMS_ITS | Encounter Summary ---
Author Organization [facility] Address [address] [place] [address] Phone Care Team Providers Care Bottom Liner Name Role Phone Bruce Covarrubisa MD Primary Care Provider [phone] Eric Hogan Primary Care Provider + Encounter Details Date Type Department Care Team (Late st Contact Info) Description 05/14/2023 Procedure Pass [facility], Ct Scan - [facility] [address] [place] [address] Social History Tobacco Use Types Packs/Day Years [...] 4:54 PM EDT Bart Ortiz RN * [place] Suicide Severity Rating Scale (Screener/Recent Self-Report) Question [...] documented as of this encounter Care Teams Bottom Liner Relationship Specialty Start Date End Date Bruce Covarrubias MD [address] [place] [address] [address] PCP - General Internal Medicine 02/13/22 05/09/25 Eric Hogan PA [address] [place] [address] PCP - General Physician Sqe 05/10/25 documented as of this encounter Additional Source Comments The information contained in this document represents components of the legal health record. It is not the complete legal health record.[facility]
--- OUTSIDE RECORDS SUMMARY | 2025-07-16 11:17 | XMS_ITS | Encounter Summary ---
Author Organization [facility] Address [address] [place] [address] Phone Care Team Providers Care Scrap Metal Collector Name Role Phone Bruce Covarrubias MD Primary Care Provider [phone] Eric Hogan Primary Care Provider + Encounter Details Date Type Department Care Team (Late st Contact Info) Description 05/14/2023 Procedure Pass [facility], Ct Scan - [facility] [address] [place] [address] Social History Tobacco Use Types Packs/Day Years [...] 4:54 PM EDT Bart Ortiz RN * [place] Suicide Severity Rating Scale (Screener/Recent Self-Report) Question [...] documented as of this encounter Care Teams Scrap Metal Collector Relationship Specialty Start Date End Date Bruce Covarrubias MD [address] [place] [address] [address] PCP - General Internal Medicine 02/13/22 05/09/25 Eric Hogan PA [address] [place] [address] PCP - General Physician System Support Analyst 05/10/25 documented as of this encounter Additional Source Comments The information contained in this document represents components of the legal health record. It is not the complete legal health record.[facility]
== END 2025-07-16 10:42 | disposition home or self-care (01) ==
LOC: HO.HMGAL 09:52
PROVIDERS: PCP Physician Assistant; Visit Provider Registered Nurse Emergency
DX: J30.89 Other allergic rhinitis (principal)
CPT/HCPCS: 95117; 95165

== ENCOUNTER 2025-07-30 10:29 | Outpatient (AMB) | payer BC, SELFPAY | END 2025-07-30 10:33 | disposition home or self-care (01) | LOC: HO.HMGAL 10:29 | PROVIDERS: PCP Physician Assistant; Visit Provider Registered Nurse Emergency | DX: J30.89 Other allergic rhinitis (principal) | CPT/HCPCS: 95117; 95165 ==

== ENCOUNTER 2025-08-13 11:45 | Outpatient (AMB) | payer BC, SELFPAY ==
--- OUTSIDE RECORDS SUMMARY | 2025-08-13 14:58 | XMS_ITS | Encounter Summary ---
Author Organization [facility] Address [address] [place] [address] Phone Care Team Providers Care Abalone Fisherman Name Role Phone Eric Hogan Primary Care Provider + Reason for Visit * Reason Comments Med Change Request Encounter Details Date Type Department Care Team (Late st Contact Info) Description 06/05/2025 Refill [facility] [address] [address] Estrellita Fuentse, BROOKE [address] [place] [address] [email or web address] Med Change Request Social History Tobacco Use [...] on filedocumented in this encounter Care Teams Abalone Fisherman Relationship Specialty Start Date End Date Eric Hogan PA [address] [place] [address] PCP - General Physician Dye Machine Operator 05/10/25 documented as of this encounter Additional Source Comments The information contained in this document represents components of the legal health record. It is not the complete legal health record.[facility]
--- OUTSIDE RECORDS SUMMARY | 2025-08-13 14:58 | XMS_ITS | Encounter Summary ---
Author Organization [facility] Address [address] [place] [address] Phone Care Team Providers Care Technical Research Scientist Name Role Phone Bruce Covarrubias MD Primary Care Provider [phone] Eric Hogan Primary Care Provider + Encounter Details Date Type Department Care Team (Late st Contact Info) Description 05/14/2023 Procedure Pass [facility], Ct Scan - [facility] [address] [place] [address] Social History Tobacco Use Types Packs/Day Years [...] 4:54 PM EDT Bart Ortiz RN * [place] Suicide Severity Rating Scale (Screener/Recent Self-Report) Question Answer Date of Assessment Author 1. Wish to be (Past 1 Month) No 023 4:54 PM EDT Bart Prado RN 2. Non-Specific Active Suici constantin Thoughts (Past 1 Month) No 05/14/2023 4:54 PM EDT Leonard Prado RN 6. Suicidal Behavior (Lifetime) No 4:54 PM EDT Bart Prdao RN documented as of this encounter Plan of Treatment Not on file documented as of this encounter Visit Diagnoses Not on filedocumented in this encounter Additional Health Concerns Infection Onset Date Last Indicated Resolved Time CoV-Risk 12/17/2024 12/17/2024 12/17/2024 1:56 PM EDT COVID-19 12/17/2024 12/17/2024 01/07/2025 1:21 AM EDT documented as of this encounter Care Teams Technical Research Scientist Relationship Specialty Start Date End Date Bruce Covarrubias MD [address] [place] [address] [address] PCP - General Internal Medicine 02/13/22 05/09/25 Eric Hogan PA [address] [place] [address] PCP - General Physician Warp Clamper 05/10/25 documented as of this encounter Additional Source Comments The information contained in this document represents components of the legal health record. It is not the complete legal health record.[facility]
--- OUTSIDE RECORDS SUMMARY | 2025-08-13 14:58 | XMS_ITS | Encounter Summary ---
Author Organization [facility] Address [address] [place] [address] Phone Care Team Providers Care Sound Engineer Name Role Phone Bruce Covarrubias MD Primary Care Provider [phone] Eric Hogan Primary Care Provider + Encounter Details Date Type Department Care Team (Late st Contact Info) Description 05/14/2023 Procedure Pass [facility], Ct Scan - [facility] [address] [place] [address] Social History Tobacco Use Types Packs/Day Years [...] 4:54 PM EDT Bart Ortiz RN * [place] Suicide Severity Rating Scale (Screener/Recent Self-Report) Question [...] documented as of this encounter Care Teams Sound Engineer Relationship Specialty Start Date End Date Bruce Covarrubias MD [address] [place] [address] [address] PCP - General Internal Medicine 02/13/22 05/09/25 Eric Hogan PA [address] [place] [address] PCP - General Physician Reeling Machine Operator 05/10/25 documented as of this encounter Additional Source Comments The information contained in this document represents components of the legal health record. It is not the complete legal health record.[facility]
--- OUTSIDE RECORDS SUMMARY | 2025-08-13 14:58 | XMS_ITS | Clinical Summary ---
Author Organization [facility] Address [address] [place] [address] Drive [address] [place] [address] Phone Care Team Providers Care Inspector Process Name Role Phone Eric Hogan Primary Care [...] Department Care Team Description 06/05/2025 Refill [facility] at [address] [address] Estrellita Fuentes NP Med Change Request from Last 3 Months Immunizations Immunization Administration [...] Date/Time Associated Diagnosis Comments BASIC METABOLIC PANEL (BMP) STAT 05/14/2023 5:35 PM EDT from Last 3 Months or Most Recently Relevant to Health Maintenance Results * (ABNORMAL) Basic metabolic panel (05/14/2023 5:35 PM EDT) SODIUM 140 133 - 146 mmol/L [facility] CHLORIDE 101 96 - 108 mmol/L [facility] POTASSIUM 4.5 3.3 - 5.1 mmol/L [facility] CO2 25 21 - 35 mmol/L [facility] BUN 28(H) 6 - 19 mg/dL [facility] CREATININE 0.80 0.5 - 1.5 mg/dL [facility] GLUCOSE 113(H) 70 - 99 mg/dL [facility] CALCIUM 9.5 8.4 - 10.3 mg/dL [facility] EGFR 101 >59 mL/min/1.7 3m2 [facility] Comment:Estimated glomerular filtration rate calculated using the CKD-EPI refit equation. ANION GAP 19 10 - 20 mmol/L [facility] Blood 05/14/2023 5:35 PM EDT 05/14/2023 5:39 PM EDT us Cesar Wing MD LAB BLOOD BKR ORDERABLES Fi nal Result [facility] [address] [place] [address] from Last 3 Months or Most Recently Relevant to Health Maintenance Insurance [facility] OUT OF [facility] POS BLUE CROSS OUT OF STATE POS BLUE CROSS OUT OF STATE POS BLUE CROSS OUT OF STATE POS BLUE CROSS OUT OF STATE POS BLUE CROSS OUT OF [facility] POS BLUE CROSS OUT OF [facility] POS BLUE [place]TER[place] OUT OF STATE POS Care Teams Inspector Process Relationship Specialty Start Date End Date Eric Hogan PA [address] [place] [address] PCP - General Physician Workers Compensation Claims Supervisor 05/10/25 Additional Source Comments The information contained in this document represents components of the legal health record. It is not the complete legal health record.[facility]
--- OUTSIDE RECORDS SUMMARY | 2025-08-13 14:58 | XMS_ITS | Encounter Summary ---
Author Organization [facility] Address [address] [place] [address] Phone Care Team Providers Care Death Claim Clerk Name Role Phone Bruce Covarrubias MD Primary Care Provider [phone] Eric Hogan Primary Care Provider + Encounter Details Date Type Department Care Team (Late st Contact Info) Description 05/14/2023 Procedure Pass [facility], Ct Scan - [facility] [address] [place] [address] Social History Tobacco Use Types Packs/Day Years [...] 4:54 PM EDT Bart Ortiz RN * [place] Suicide Severity Rating Scale (Screener/Recent Self-Report) Question [...] documented as of this encounter Care Teams Death Claim Clerk Relationship Specialty Start Date End Date Bruce Covarrubias MD [address] [place] [address] [address] PCP - General Internal Medicine 02/13/22 05/09/25 Eric Hogan PA [address] [place] [address] PCP - General Physician Machine Shop Apprentice 05/10/25 documented as of this encounter Additional Source Comments The information contained in this document represents components of the legal health record. It is not the complete legal health record.[facility]
--- OUTSIDE RECORDS SUMMARY | 2025-08-13 14:58 | XMS_ITS | Encounter Summary ---
Author Organization [facility] Address [address] [place] [address] Phone Care Team Providers Care Microsystems Engineer Name Role Phone Bruce Covarrubias MD Primary Care Provider [phone] Eric Hogan Primary Care Provider + Encounter Details Date Type Department Care Team (Late st Contact Info) Description 05/14/2023 Procedure Pass [facility], Ct Scan - [facility] [address] [place] [address] Social History Tobacco Use Types Packs/Day Years [...] 4:54 PM EDT Bart Ortiz RN * [place] Suicide Severity Rating Scale (Screener/Recent Self-Report) Question [...] documented as of this encounter Care Teams Microsystems Engineer Relationship Specialty Start Date End Date Bruce Covarrubias MD [address] [place] [address] [address] PCP - General Internal Medicine 02/13/22 05/09/25 Eric Hogan PA [address] [place] [address] PCP - General Physician Bellman Driver 05/10/25 documented as of this encounter Additional Source Comments The information contained in this document represents components of the legal health record. It is not the complete legal health record.[facility]
== END 2025-08-13 11:46 | disposition home or self-care (01) ==
LOC: HO.HMGAL 11:45
PROVIDERS: PCP Physician Assistant; Visit Provider Registered Nurse Emergency
DX: J30.89 Other allergic rhinitis (principal)
CPT/HCPCS: 95117; 95165

== ENCOUNTER 2025-08-27 10:16 | Outpatient (AMB) | payer BC, SELFPAY | END 2025-08-27 10:17 | disposition home or self-care (01) | LOC: HO.HMGAL 10:16 | PROVIDERS: PCP Physician Assistant; Visit Provider Registered Nurse Emergency | DX: J30.89 Other allergic rhinitis (principal) | CPT/HCPCS: 95117; 95165 ==

== ENCOUNTER 2025-09-10 09:28 | Outpatient (AMB) | payer BC, SELFPAY ==
--- OUTSIDE RECORDS SUMMARY | 2025-09-10 11:12 | XMS_ITS | Encounter Summary ---
Author Organization [facility] Address [address] [place] [address] Phone Care Team Providers Care Final Installer Inspector Name Role Phone Bruce Covarrubias MD Primary Care Provider [phone] Eric Hogan Primary Care Provider + Encounter Details Date Type Department Care Team (Late st Contact Info) Description 05/14/2023 Procedure Pass [facility], Ct Scan - [facility] 30 [place] [address] Social History Tobacco Use Types Packs/Day Years [...] 4:54 PM EDT Bart Ortiz RN * [place] Suicide Severity Rating Scale (Screener/Recent Self-Report) Question [...] documented as of this encounter Care Teams Final Installer Inspector Relationship Specialty Start Date End Date Bruce Covarrubias MD [address] [place] [address] [address] PCP - General Internal Medicine 02/13/22 05/09/25 Eric Hogan PA [address] [place] [address] PCP - General Physician Bale Piler 05/10/25 documented as of this encounter Additional Source Comments The information contained in this document represents components of the legal health record. It is not the complete legal health record.[facility]
--- OUTSIDE RECORDS SUMMARY | 2025-09-10 11:12 | XMS_ITS | Encounter Summary ---
Author Organization [facility] Address [address] [place] [address] Phone Care Team Providers Care Plate Gauger Name Role Phone Eric Hogan Primary Care Provider + Reason for Visit * Reason Comments Med Change Request Encounter Details Date Type Department Care Team (Late st Contact Info) Description 06/05/2025 Refill [facility] at [address] [address] Estrellita Fuentes, BROOKE [address] [place] [address] [email or web address] Med Change Request Social History Tobacco Use [...] on filedocumented in this encounter Care Teams Plate Gauger Relationship Specialty Start Date End Date Eric Hogan PA [address] [place] [address] PCP - General Physician Web Content Producer 05/10/25 documented as of this encounter Additional Source Comments The information contained in this document represents components of the legal health record. It is not the complete legal health record.[facility]
--- OUTSIDE RECORDS SUMMARY | 2025-09-10 11:12 | XMS_ITS | Encounter Summary ---
Author Organization [facility] Address [address] [place] [address] Phone Care Team Providers Care Briquette Operator Name Role Phone Bruce Covarrubias MD Primary Care Provider [phone] Eric Hogan Primary Care Provider + Encounter Details Date Type Department Care Team (Late st Contact Info) Description 05/14/2023 Procedure Pass [facility], Ct Scan - [facility] [address] [place] [address] Social History Tobacco Use Types Packs/Day Years [...] 4:54 PM EDT Bart Ortiz RN * [place] Suicide Severity Rating Scale (Screener/Recent Self-Report) Question [...] documented as of this encounter Care Teams Briquette Operator Relationship Specialty Start Date End Date Bruce Covarrubias MD [address] [place] [address] [address] PCP - General Internal Medicine 02/13/22 05/09/25 Eric Hogan PA [address] [place] [address] PCP - General Physician Wooden Fence Erector 05/10/25 documented as of this encounter Additional Source Comments The information contained in this document represents components of the legal health record. It is not the complete legal health record.[facility]
--- OUTSIDE RECORDS SUMMARY | 2025-09-10 11:12 | XMS_ITS | Encounter Summary ---
Author Organization [facility] Address [address] [place] [address] Phone Care Team Providers Care Sifter And Miller Name Role Phone Bruce Covarrubias MD Primary Care Provider [phone] Eric Hogan Primary Care Provider + Encounter Details Date Type Department Care Team (Late st Contact Info) Description 05/14/2023 Procedure Pass [facility], Ct Scan - [facility] [address] [place] [address] Social History Tobacco Use Types Packs/Day Years [...] 4:54 PM EDT Bart Ortiz RN * [place] Suicide Severity Rating Scale (Screener/Recent Self-Report) Question [...] documented as of this encounter Care Teams Sifter And Miller Relationship Specialty Start Date End Date Bruce Covarrubias MD [address] [place] [address] [address] PCP - General Internal Medicine 02/13/22 05/09/25 Eric Hogan PA [address] [place] [address] PCP - General Physician Vending Machine Repairer 05/10/25 documented as of this encounter Additional Source Comments The information contained in this document represents components of the legal health record. It is not the complete legal health record.[facility]
--- OUTSIDE RECORDS SUMMARY | 2025-09-10 11:12 | XMS_ITS | Clinical Summary ---
Author Organization [facility] Address [address] [place] [address] Phone Care Team Providers Care Sausage Linker Name Role Phone Eric Hogan Primary Care [...] Date Diagnosed Date Essential (primary) hypertension 07/22/2021 Immunizations Immunization Administration [...] EDT) SODIUM 140 133 - 146 mmol/L [facility] CHLORIDE 101 96 - 108 mmol/L [facility] POTASSIUM 4.5 3.3 - 5.1 mmol/L [facility] CO2 25 21 - 35 mmol/L [facility] BUN 28(H) 6 - 19 mg/dL [facility] CREATININE 0.80 0.5 - 1.5 mg/dL [facility] GLUCOSE 113(H) 70 - 99 mg/dL [facility] CALCIUM 9.5 8.4 - 10.3 mg/dL [facility] EGFR 101 >59 mL/min/1.7 3m2 [facility] Comment:Estimated glomerular filtration rate calculated using the CKD-EPI refit equation. ANION GAP 19 10 - 20 mmol/L [facility] Blood 05/14/2023 5:35 PM EDT 05/14/2023 5:39 PM EDT us Cesar Wing MD LAB BLOOD BKR ORDERABLES Fi nal Result [address] [address] from Last 3 Months or Most Recently Relevant to Health Maintenance Insurance OUT [facility] POS POS BLUE CROSS OUT OF STATE POS BLUE CROSS OUT OF STATE POS BLUE CROSS OUT OF STATE POS BLUE CROSS OUT OF STATE POS BLUE CROSS OUT OF STATE POS BLUE CROSS OUT OF STATE POS BLUE CROSS OUT OF STATE POS Care Teams Sausage Linker Relationship Specialty Start Date End Date Eric Hogan PA [facility] [place] [address] PCP - General Physician Party Chief 05/10/25 Additional Source Comments The information contained in this document represents components of the legal health record. It is not the complete legal health record.[facility]
--- OUTSIDE RECORDS SUMMARY | 2025-09-10 11:12 | XMS_ITS | Encounter Summary ---
Author Organization [facility] Address [address] [place] [address] Phone Care Team Providers Care Item Processor Name Role Phone Bruce Covarrubias MD Primary Care Provider [phone] Eric Hogan Primary Care Provider + Encounter Details Date Type Department Care Team (Late st Contact Info) Description 05/14/2023 Procedure Pass [facility], Ct Scan - [facility] [address] [place] [address] Social History Tobacco Use Types Packs/Day Years [...] 4:54 PM EDT Bart Ortiz RN * [place] Suicide Severity Rating Scale (Screener/Recent Self-Report) Question [...] documented as of this encounter Care Teams Item Processor Relationship Specialty Start Date End Date Bruce Covarrubias MD [address] [place] [address] [address] PCP - General Internal Medicine 02/13/22 05/09/25 Eric Hogan PA [address] [place] [address] PCP - General Physician Armor Reconnaissance Vehicle Driver 05/10/25 documented as of this encounter Additional Source Comments The information contained in this document represents components of the legal health record. It is not the complete legal health record.[facility]
== END 2025-09-10 09:28 | disposition home or self-care (01) ==
LOC: HO.HMGAL 09:28
PROVIDERS: PCP Physician Assistant; Visit Provider Registered Nurse Emergency
DX: J30.89 Other allergic rhinitis (principal)
CPT/HCPCS: 95117; 95165

== ENCOUNTER 2025-09-24 09:47 | Outpatient (AMB) | payer BC, SELFPAY | END 2025-09-24 09:48 | disposition home or self-care (01) | LOC: HO.HMGAL 09:47 | PROVIDERS: PCP Physician Assistant; Visit Provider Registered Nurse Emergency | DX: J30.89 Other allergic rhinitis (principal) | CPT/HCPCS: 95117; 95165 ==